=== PATIENT | female | born 1945 | race Caucasian/White ===

== ENCOUNTER 2017-04-11 08:00 | Inpatient (IN) | payer MEDICARE ==
[2017-04-11] MEDS ORDERED: Nitroglycerin 0.4 MG TAB (25 Tab Bottle) ONE (08:04)
[2017-04-11 08:17] LABS: Anion Gap 9 mmol/L (-14-95); Lactate 1.83 mmol/L (0.50-2.20); POC Est. GFR-MDRD-African-Amer 50 (2-60); POC Estimated GFR-MDRD 42 (2-60); T. Carbon Dioxide 24.1 mmol/L (1.0-85.0); pH (Venous) 7.352 (7.35-7.45); vO2 Saturation-calc 97.8 % (0.0-100.0)
[2017-04-11 08:33] LABS: #Basophils 0.1 thou/uL (0.0-0.2); #Eosinphils 0.3 thou/uL (0.0-0.7); #Lymphocytes 2.1 thou/uL (1.20-3.40); #Monocytes 0.6 thou/uL (0.11-0.59); %Basophils 0.8 % (0.0-1.0); %Lymphocytes 34.7 % (21.0-51.0); %Monocytes 9.8 % (0.0-10.0); Hematocrit 40.9 % (36.0-47.0); Mean Platelet Volume 7.1 fL (7.4-10.4); Red Blood Cell (RBC) Count 3.99 mill/uL (4.20-5.40); White Blood Cell (WBC) Count 6.1 thou/uL (4.8-10.8)
[2017-04-11 08:36] LABS: PTT 27.4 SEC (22.9-36.1); Prothrombin Time 12.7 SEC (12.0-14.7)
--- NOTE | 2017-04-11 08:37 | RAD ---
PORTABLE AP CHEST X-RAY: 04/11/2017 HISTORY: Emergency. COMPARISON: 01/08/2017 FINDINGS: The cardiac silhouette is enlarged. There is an increase in interstitial densities bilaterally, whi ch may be related to either pulmonary edema or an infectious process. These interstitial densities were not present on the prior study. No consolidation or pleural fluid is evident. Vascular calcif ications are seen in a mildly ectatic thoracic aorta. No other interval change. IMPRESSION: Interval development of diffuse increased interstitial opacities, which may be related to either an infectious process or pulmonary edema. POS: MED
[2017-04-11 08:45] LABS: Chloride 103 mmol/L (98-107)
[2017-04-11 08:46] LABS: Calcium 9.1 mg/dL (7.8-10.44)
[2017-04-11 08:47] LABS: Globulin 4.7 g/dL (2.4-3.5); Protein, Total 8.3 g/dL (6.0-8.3)
[2017-04-11 08:48] LABS: Carbon Dioxide 18 mmol/L (23-31)
[2017-04-11 08:49] LABS: Bilirubin, Total 0.5 mg/dL (0.2-1.2)
[2017-04-11 08:50] LABS: Alkaline Phosphatase 73 U/L (40-150); Calc. Creatinine Clearance 0 mL/min (70-130); Estimated GFR-MDRD 36
[2017-04-11 08:51] LABS: BUN (Urea Nitrogen) 18 mg/dL (9.8-20.1); Troponin I 1.554 ng/mL (< 0.028)
[2017-04-11 08:52] LABS: AST (SGOT) 28 U/L (5-34)
[2017-04-11 08:53] LABS: ALT (SGPT) 12 U/L (8-55); Lipase 24 U/L (8-78)
[2017-04-11] MEDS ORDERED: Clopidogrel Bisulfate 300 MG TAB ONE (09:09)
[2017-04-11 09:12] LABS: Anion Gap 20 mmol/L (10-20)
[2017-04-11] MEDS ORDERED: Furosemide 20 MG/2 ML VIAL ONE (10:12)
[2017-04-11] MEDS ORDERED: Furosemide 20 MG/2 ML VIAL SLOW IVP SCH (10:15)
[2017-04-11] MEDS ORDERED: Sodium Chloride 0.9% 1,000 ML IV SCH (10:16)
[2017-04-11] MEDS ORDERED: Mag-Al 1200 mg/1200 mg/30 ML UDCUP PO PRN (10:16)
[2017-04-11] MEDS ORDERED: Milk Of Magnesia 30 ML UDCUP PO PRN (10:16)
[2017-04-11] MEDS ORDERED: Lisinopril 2.5 MG TAB PO SCH (11:00)
[2017-04-11 11:28] LABS: Troponin I 3.132 ng/mL (< 0.028)
--- NOTE | 2017-04-11 11:50 | EKG ---
Test Reason : POST STENT Blood Pressure : / mmHG Vent. Rate : 068 BPM Atrial Rate : 068 BPM P-R Int : 174 ms QRS Dur : 106 ms QT Int : 488 ms P-R-T Axes : 056 026 131 degrees QTc Int : 518 ms Normal sinus rhythm Prolonged QT Abnormal ECG When compared with ECG of 08-JAN-2017 07:29, QT has lengthened Confirmed by DR. Sebastian ERAZO ([id number]) on 04/11/2017 11:50:12 AM Referred By: Stanley HERNANDEZ Confirmed By:DR. Sebastian ERAZO
--- NOTE | 2017-04-11 12:05 | RAD ---
PORTABLE CHEST 1 VIEW: Date: 04/11/17 Time: 0928 hours HISTORY: ST elevation myocardial infarction with stent placement. FINDINGS/IMPRESSION: Comparison made with earlier exam at 0812 hours from the same date. No significant interval change is identified. POS: [facility]
--- NOTE | 2017-04-11 12:14 | HP ---
DATE OF SERVICE 04/11/2017 CHIEF COMPLAINT: Chest pain, abnormal EKG. HISTORY OF PRESENT ILLNESS: Ms. Schneider is a 72-year-old female who woke up early this morning with chest pain, diaphoresis, and shortness of breath. She was brought to the emergency dep artment and upon arrival, EKG showed evidence of global ischemia with ST segment elevation in the au gmented lead AVR. The Senior Editor was mobilized for an urgent evaluation invasively. She has been evaluated by a security test engineer in [place] in the past and was told that she had inoperable disease. Due to this report she has relegated herself into medical management and has ignored ches t pain in the past. She continues to smoke and has done so for decades. I do not have records of h er prior evaluation in [place] for review. PAST MEDICAL HISTORY: 1. Previously documented coronary artery disease. 2. Chronic obstructive pulmonary disease. 3. Hypertension. 4. Dyslipidemia. 5. Gastroesophageal reflux disease. PAST SURGICAL HISTORY: 1. Appendectomy. 2. Hysterectomy. 3. Lumbar spine surgery. ALLERGIES: SULFA (anaphylaxis). SOCIAL HISTORY: Long-term tobacco use with continued tobacco use, smoking cigarettes. Reported sig nificant alcohol intake. Negative for illicit drug use. FAMILY HISTORY: Negative with respect to premature atherosclerosis. CURRENT MEDICATIONS: 1. Xanax 0.25 mg b.i.d. as needed for anxiety. 2. Aspirin 81 mg daily. 3. Carvedilol 3.125 mg b.i.d. 4. Plavix 75 mg daily. 5. Lasix 40 mg daily. 6. Imdur 30 mg b.i.d. 7. Lisinopril 10 mg daily. 8. Nitrostat as needed sublingually. 9. Protonix 40 mg daily. 10. Ranolazine 500 mg b.i.d. REVIEW OF SYSTEMS: As per history of present illness. Remainder of 12 system review is negative. PHYSICAL EXAMINATION: VITAL SIGNS: Blood pressure on arrival is 170/78, pulse 80 and regular, respiratory rate 16 and non labored, temperature 98.8. GENERAL: This is a well-developed, thin, elderly appearing 72-year-old female in no acute distress. She is alert and oriented x4. She answers questions appropriately. HEENT: Head was atraumatic, normocephalic. Pupils were equal, round and reactive. Sclerae and con junctivae are clear. There are no oral lesions. NECK: Supple, no JVD, thyromegaly, carotid bruits. CHEST: Symmetrical inspiration and expiration. HEART: Regular in rate and rhythm. No murmur, S3, S4. PMI is nondisplaced, not enlarged. LUNGS: Clear to auscultation in all loyd. No adventitious sounds appreciated. ABDOMEN: Soft, nontender, nondistended without mass or organomegaly. Bowel sounds are present in a ll 4 quadrants. No flank bruits auscultated. EXTREMITIES: 2+ pulses noted bilaterally in the upper and lower extremities. Strength is 5/5 bilat erally. There is no clubbing, cyanosis or edema. NEUROLOGIC: Grossly intact without focal motor deficits appreciated. DATABASE: EKG reveals sinus rhythm with diffuse global ST segment depressions with elevations in AV R. LABORATORY DATA: CBC reveals a white count 6, H\T\H of 13 and 40, platelet count 248,000. Differen tial; white blood cells normal. Red cell indices are macrocytic with an MCV of 103. Coagulation st udies are normal. Chemistries reveal normal electrolytes, BUN and creatinine of 18 and 1.4, GFR is estimated at 42. LFTs are normal. CK and CK-MB measurements are normal. Troponin 1.5. ASSESSMENT: 1. Acute coronary syndrome. 2. Known coronary artery disease with medical management recommended remotely. 3. Hypertension, marginally controlled. 4. Dyslipidemia, reportedly on therapy. 5. Chronic kidney disease stage 3. 6. Chronic tobacco use. 7. Questionable alcohol abuse. RECOMMENDATIONS: 1. From a cardiac standpoint, she is stable currently hemodynamically. We have opted to move forwa rd urgently to the Senior Editor to evaluate her coronary anatomy and intervene if appropriate. We will make further recommendations when her anatomy is further defined. 2. We will resume medications for acute coronary syndrome and known coronary artery disease and up titrate the doses of medications for optimizing control. I will follow along and appreciate the opportunity to participate.
[2017-04-11 14:19] VITALS: BMI 22.2
[2017-04-11] MEDS ORDERED: FLU VACC TS2017-18 (>65YR) 0.5 ML SYRINGE IM ONE (15:30)
[2017-04-11] MEDS ORDERED: Ondansetron HCl/PF 4 MG/2 ML Vial SLOW IVP PRN (16:30)
[2017-04-11] MEDS ORDERED: Ondansetron HCl/PF 4 MG/2 ML Vial SLOW IVP SCH (16:30)
[2017-04-11 17:17] LABS: Troponin I 7.683 ng/mL (< 0.028)
--- NOTE | 2017-04-11 17:44 | CON ---
DATE OF CONSULTATION: 04/11/2017 HISTORY OF PRESENT ILLNESS: Ms. Schneider is a bright, pleasant 72-year-old female. Apparently, alexis berumen was told that she had inoperable coronary disease. According to Dr. Melton's notes, she has been pr esenting with chest discomfort intermittently and had a particularly bad episode today. She has und ergone cardiac catheterization and stenting. I was consulted because of her presence to the ICU. PAST MEDICAL HISTORY: 1. Remarkable for COPD. She said that she was not told she could not have heart surgery because of her COPD, but because of coronary anatomy problems. 2. History of hypertension. 3. Lipid disorder. 4. Reflux disease. 5. Status post hysterectomy. 6. Appendectomy and spine surgery. ALLERGIES: She reports intolerance to SULFA. SOCIAL HISTORY: She is a smoker. She is not a drinker. FAMILY HISTORY: She has a family history negative for lung disease. PHYSICAL EXAMINATION: VITAL SIGNS: Blood pressure 180/85, pulse 80, respiratory rate 18. She is in no distress. She say s her chest pain was gone. HEENT: Pupils are equal. Sclerae is anicteric. NECK: Supple. LUNGS: Clear. HEART: Regular rhythm. S1 and S2 are normal. ABDOMEN: Soft and nontender. EXTREMITIES: Without clubbing, cyanosis or edema. IMPRESSION: 1. Status post coronary intervention through the right radial approach. She is chest pain free now after coronary stenting. 2. ? obstructive lung disease. PLAN: Add Symbicort. She is not bronchospastic at this point.
[2017-04-11] MEDS: Mometasone/Formoterol 120 PUFF INHALER INH SCH (18:07)
[2017-04-11] MEDS: Atorvastatin Calcium 20 MG TAB PO SCH (20:51)
[2017-04-11] MEDS: Carvedilol 3.125 MG TAB PO SCH (20:51)
[2017-04-12] MEDS ORDERED: Sodium Chloride 0.9% (PF) 10 ML VIAL ONE (01:35)
[2017-04-12] MEDS ORDERED: Heparin 10,000 UNITS/ 10 ML VIAL ONE (01:35)
[2017-04-12 04:24] LABS: #Eosinphils 0.1 thou/uL (0.0-0.7); #Lymphocytes 0.8 thou/uL (1.20-3.40); #Monocytes 0.3 thou/uL (0.11-0.59); #Neutrophils 3.6 thou/uL (1.40-6.50); %Basophils 0.4 % (0.0-1.0); %Eosinophils 2.4 % (0.0-10.0); %Lymphocytes 16.4 % (21.0-51.0); %Monocytes 7.1 % (0.0-10.0); Hematocrit 32.9 % (36.0-47.0); Mean Platelet Volume 6.4 fL (7.4-10.4); Red Blood Cell (RBC) Count 3.31 mill/uL (4.20-5.40); White Blood Cell (WBC) Count 4.8 thou/uL (4.8-10.8)
[2017-04-12 04:30] LABS: ALT (SGPT) 11 U/L (8-55); AST (SGOT) 25 U/L (5-34); Alkaline Phosphatase 57 U/L (40-150); Anion Gap 8 mmol/L (10-20); BUN (Urea Nitrogen) 19 mg/dL (9.8-20.1); Bilirubin, Total 0.6 mg/dL (0.2-1.2); Calc. Creatinine Clearance 45 mL/min (70-130); Calcium 8.7 mg/dL (7.8-10.44); Carbon Dioxide 29 mmol/L (23-31); Chloride 102 mmol/L (98-107); Estimated GFR-MDRD 49; Globulin 3.2 g/dL (2.4-3.5); Protein, Total 6.4 g/dL (6.0-8.3)
[2017-04-12] MEDS: Mometasone/Formoterol 120 PUFF INHALER INH SCH ×2 (07:29→18:31)
[2017-04-12] MEDS: Clopidogrel Bisulfate 75 MG TAB PO SCH (08:21)
[2017-04-12] MEDS ORDERED: Morphine 2 MG/ML SYRINGE SLOW IVP PRN (08:31)
[2017-04-12] MEDS ORDERED: Nitroglycerin 2% Ointment 1 INCH/1 GM Packet TOP SCH (08:45)
[2017-04-12] MEDS: Carvedilol 3.125 MG TAB PO SCH ×2 (09:05→20:32)
[2017-04-12] MEDS ORDERED: Heparin 10,000 UNITS/1 ML VIAL ONE (09:26)
[2017-04-12] MEDS ORDERED: Nitroglycerin 100MG/250ML BOT 0 ML ONE (09:26)
[2017-04-12] MEDS: Lisinopril 2.5 MG TAB PO SCH (11:12)
[2017-04-12] MEDS ORDERED: Midazolam HCl 2 mg/2 ml Vial ONE (11:21)
[2017-04-12] MEDS ORDERED: Fentanyl 100 MCG/2 ML VIAL ONE (11:22)
[2017-04-12] MEDS ORDERED: DOPamine 400 MG/D5W 250 ML 250 ML ONE (11:32)
--- NOTE | 2017-04-12 12:06 | EKG ---
Test Reason : STAT Blood Pressure : / mmHG Vent. Rate : 071 BPM Atrial Rate : 071 BPM P-R Int : 166 ms QRS Dur : 094 ms QT Int : 468 ms P-R-T Axes : 060 034 072 degrees QTc Int : 508 ms Normal sinus rhythm Left ventricular hypertrophy with repolarization abnormality Prolonged QT Abnormal ECG When compared with ECG of 11-APR-2017 10:19, Nonspecific T wave abnormality no longer evident in Inferior leads Confirmed by DR. Sebastian ERAZO ([id number]) on 04/12/2017 12:06:09 PM Referred By: Confirmed By:DR. Sebastian ERAZO
--- NOTE | 2017-04-12 12:12 | EKG ---
Test Reason : C/O CHEST PAIN Blood Pressure : / mmHG Vent. Rate : 071 BPM Atrial Rate : 071 BPM P-R Int : 170 ms QRS Dur : 098 ms QT Int : 454 ms P-R-T Axes : 051 018 055 degrees QTc Int : 493 ms Normal sinus rhythm Nonspecific ST and T wave abnormality Prolonged QT Abnormal ECG When compared with ECG of 12-APR-2017 04:14, (Unconfirmed) No significant change was found Confirmed by DR. Sebastian ERAZO ([id number]) on 04/12/2017 12:12:08 PM Referred By: Stanley HERNANDEZ Confirmed By:DR. Sebastian ERAZO
[2017-04-12] MEDS ORDERED: Ondansetron HCl/PF 4 MG/2 ML Vial ONE ×2 (12:19→12:55)
[2017-04-12] MEDS ORDERED: Acetaminophen/Codeine 30-300mg Tablet PO PRN (12:29)
--- NOTE | 2017-04-12 16:50 | PRG ---
DATE OF SERVICE: 04/12/2017 SUBJECTIVE: Valeria Schneider underwent a complicated cardiac catheterization today. She is back i n the ICU and medically stable. OBJECTIVE: VITAL SIGNS: Heart rate 77, respiratory rate is 19, oximetry is 100% and blood pressures at 2:00 wa s 157/58. ASSESSMENT AND PLAN: She will stay in the ICU until tomorrow and then hopefully move her out of the Critical Care Unit.
[2017-04-12] MEDS: Morphine 2 MG/ML SYRINGE SLOW IVP PRN ×2 (18:43→23:17)
[2017-04-12] MEDS: Zolpidem Tartrate 5 MG TAB PO PRN (20:32)
[2017-04-12] MEDS: Atorvastatin Calcium 20 MG TAB PO SCH (20:32)
[2017-04-12] MEDS: ALPRAZolam 0.25 MG TAB PO PRN (21:42)
[2017-04-13] MEDS: ALPRAZolam 0.25 MG TAB PO PRN ×2 (01:11→18:16)
[2017-04-13] MEDS: Zolpidem Tartrate 5 MG TAB PO PRN ×2 (01:11→20:57)
[2017-04-13] MEDS: Morphine 2 MG/ML SYRINGE SLOW IVP PRN ×2 (03:06→18:21)
[2017-04-13 03:55] LABS: #Eosinphils 0.1 thou/uL (0.0-0.7); #Monocytes 0.5 thou/uL (0.11-0.59); #Neutrophils 2.4 thou/uL (1.40-6.50); %Basophils 0.5 % (0.0-1.0); %Eosinophils 3.4 % (0.0-10.0); %Lymphocytes 23.8 % (21.0-51.0); Mean Platelet Volume 6.6 fL (7.4-10.4); Red Blood Cell (RBC) Count 3.22 mill/uL (4.20-5.40)
[2017-04-13 04:14] LABS: ALT (SGPT) 12 U/L (8-55); AST (SGOT) 36 U/L (5-34); Alkaline Phosphatase 52 U/L (40-150); Anion Gap 9 mmol/L (10-20); BUN (Urea Nitrogen) 19 mg/dL (9.8-20.1); Bilirubin, Total 0.6 mg/dL (0.2-1.2); Calc. Creatinine Clearance 56 mL/min (70-130); Calcium 8.8 mg/dL (7.8-10.44); Carbon Dioxide 24 mmol/L (23-31); Chloride 105 mmol/L (98-107); Estimated GFR-MDRD 62; Globulin 3.2 g/dL (2.4-3.5); Protein, Total 6.3 g/dL (6.0-8.3)
[2017-04-13] MEDS ORDERED: Morphine 2 MG/ML SYRINGE SLOW IVP PRN (06:25)
[2017-04-13] MEDS: Mometasone/Formoterol 120 PUFF INHALER INH SCH ×2 (06:59→18:40)
--- NOTE | 2017-04-13 07:27 | EKG ---
Blood Pressure : / mmHG Vent. Rate : 069 BPM Atrial Rate : 069 BPM P-R Int : 174 ms QRS Dur : 108 ms QT Int : 498 ms P-R-T Axes : 059 039 053 degrees QTc Int : 533 ms Normal sinus rhythm Marked ST abnormality, possible inferior subendocardial injury Marked ST abnormality, possible anterior subendocardial injury Prolonged QT Abnormal ECG When compared with ECG of 12-APR-2017 08:28, ST now depressed in Anterior leads Confirmed by DR. Sebastian ERAZO ([id number]) on 04/13/2017 7:27:35 AM Referred By: MARY Confirmed By:DR. Sebastian ERAZO
[2017-04-13] MEDS: Clopidogrel Bisulfate 75 MG TAB PO SCH (10:47)
[2017-04-13] MEDS: Carvedilol 3.125 MG TAB PO SCH (10:47)
[2017-04-13] MEDS: Lisinopril 2.5 MG TAB PO SCH (10:47)
--- NOTE | 2017-04-13 11:14 | PDOC.CTH ---
Cardiology Progress Note - Subjective Doing great. No CP or other CV symptoms. Not needing TPM overnight. Tolerating medical management. ROS otherwise negative. - Objective Vital Signs Temp Pulse Resp Pulse Ox 04/13/17 10:47 79 04/13/17 07:40 98.1 F 79 16 100 04/13/17 07:00 98.1 F 04/13/17 06:59 76 18 100 04/13/17 04:00 98 F 04/13/17 00:00 98.2 F Weight 138 lb 04/12/17 04/13/17 04/14/17 06:59 06:59 06:59 Intake Total 1325 390 Output Total 1200 850 40 Balance 125 -460 -40 - Physical Examination General/Neuro: alert & oriented x3, NAD Neck: carotid US brisk, no JVD present Lungs: CTA, unlabored respirations Heart: PMI normal, RRR Abdomen: no HSM, NT/ND, soft Extremities: other: (2+ pulses, no edema) Other PE findings: Neuro: no focal motor defs - Telemetry Telemetry Rhythm: sinus rhythm - Labs Result Diagrams: 04/13/17 03:43 04/13/17 03:43 Troponin/CKMB CK-MB (CK-2) 48.7 ng/mL (0-6.6) H* 04/11/17 16:14 Troponin I 7.683 ng/mL (< 0.028) H* 04/11/17 16:14 - Assessment/Plan 1. CAD, s/p PCI of LCx and LAD: stable. Continue medical management. 2. TPM during PCI yesterday: removed today. Sheath to remove this morning with transfer to telemetry this afternoon. Home tomorrow on meds with follow up in office in 2 weeks. 3. HTN: controlled. Continue medical management. 4. dyslipidemia: statin for life 5. tobacco use: counseled on need to discontinue given degree of disease and adverse health effects.
--- NOTE | 2017-04-13 13:25 | EKG ---
Test Reason : Blood Pressure : / mmHG Vent. Rate : 080 BPM Atrial Rate : 080 BPM P-R Int : 156 ms QRS Dur : 104 ms QT Int : 450 ms P-R-T Axes : 058 023 080 degrees QTc Int : 519 ms Normal sinus rhythm Prolonged QT Abnormal ECG When compared with ECG of 12-APR-2017 13:37, ST less depressed in Anterior leads Confirmed by DR. Sebastian ERAZO ([id number]) on 04/13/2017 1:24:10 PM Referred By: MARY Confirmed By:DR. Sebastian ERAZO
--- NOTE | 2017-04-13 16:05 | PRG ---
DATE OF SERVICE: 04/13/2017 SUBJECTIVE: Ms. Valeria Schneider said she is feeling great, she states she has down with smoking, she wants to see her grandbaby. OBJECTIVE: VITAL SIGNS: Heart rate 78, respiratory rate 16, oximetry is 100%, and blood pressure 154/49. LUNGS: Free of wheezes. HEART: Regular rhythm. IMPRESSION: 1. Chronic obstructive pulmonary disease, clinically stable. 2. Status post complicated coronary stenting. PLAN: Continue support. She is stable to move out of Critical Care Unit when Cardiology feels she is.
[2017-04-13] MEDS: Atorvastatin Calcium 20 MG TAB PO SCH (20:53)
[2017-04-13] MEDS: Carvedilol 6.25 MG TAB PO SCH (20:54)
[2017-04-14] MEDS: ALPRAZolam 0.25 MG TAB PO PRN (04:45)
[2017-04-14] MEDS: Mometasone/Formoterol 120 PUFF INHALER INH SCH ×2 (09:06→18:35)
[2017-04-14] MEDS: Carvedilol 6.25 MG TAB PO SCH ×2 (10:35→20:26)
[2017-04-14] MEDS: Clopidogrel Bisulfate 75 MG TAB PO SCH (10:35)
[2017-04-14] MEDS: Lisinopril 2.5 MG TAB PO SCH (10:36)
[2017-04-14] MEDS: ALPRAZolam 0.5 MG TAB PO PRN ×2 (11:00→20:26)
--- NOTE | 2017-04-14 11:01 | PRG ---
DATE OF SERVICE: 04/14/2017 Valeria Schneider is complaining of a little chest congestion, and shortness of breath. She is not wheezing. PHYSICAL EXAMINATION: VITAL SIGNS: On exam her heart rate is 83, blood pressure 133/75. She was hypertensive earlier thi s morning at 187/90. LUNGS: Her lungs are completely clear at this time. IMPRESSION: 1. Severe anxiety 2. Coronary disease, status post multiple stents with a coronary dissection. 3. Anemia with an increased mean corpuscular volume. PLAN: Supportive care. I will add nebulizer treatments. I will increase her anxiolytics.
--- NOTE | 2017-04-14 17:57 | PDOC.CTH ---
Cardiology Progress Note - Subjective She is doing well. Her anxiety level has improved significantly with current meds. She denies any chest pain, tightness ,pressure, SOB. Her cath sites look unremarkable, no hematoma or bruit. - Objective Vital Signs Temp Pulse Resp BP BP Pulse Ox 04/14/17 14:41 74 16 04/14/17 12:00 98.2 F 78 18 136/77 96 04/14/17 11:37 79 16 04/14/17 10:36 83 133/75 04/14/17 10:35 133/75 04/14/17 09:07 96 04/14/17 09:06 76 12 L 04/14/17 08:00 98.2 F 78 18 133/75 96 Weight 138 lb 04/13/17 04/14/17 04/15/17 06:59 06:59 06:59 Intake Total 390 844 720 Output Total 850 380 Balance -460 464 720 - Physical Examination General/Neuro: alert & oriented x3, NAD Neck: no JVD present Lungs: unlabored respirations Heart: RRR Abdomen: NT/ND Extremities: other: (no edema) - Telemetry Telemetry Rhythm: NSR - Labs Result Diagrams: 04/13/17 03:43 04/13/17 03:43 Troponin/CKMB CK-MB (CK-2) 48.7 ng/mL (0-6.6) H* 04/11/17 16:14 Troponin I 7.683 ng/mL (< 0.028) H* 04/11/17 16:14 - Assessment/Plan 1. CAD, s/p PCI of LCx and LAD: stable 2. HTN: controlled. 3. Dyslipidemia: statin for life 4. Tobacco use: counseled on cessation 5. Anxiety, better with increased anxiolitic. 6. Full code. 7. EF at 40-45%, ischemic CM. PLAN: - Continue current meds - Home tomorrow if remains stable.
[2017-04-14] MEDS ORDERED: hydrALAZINE 20 MG/ML VIAL SLOW IVP PRN (17:58)
--- NOTE | 2017-04-14 19:43 | ECHO ---
DATE OF SERVICE: 04/11/2017. Left ventricle is normal size. LV wall thickness is normal. Systolic function is reduced with EF es timated at 40-45% with severe hypokinesis of the inferior and inferolateral wall and mild hypokinesi s of the anterolateral wall. Grade I/III diastolic dysfunction. Left atrium is mildly dilated. The right atrium is normal size and right ventricle are normal size and normal systolic function. Aortic root is normal size. The aortic valve is heavily calcified with decreased cusp opening. Hemodynamic measurements suggest moderate aortic stenosis with a valve area estimated at 1.4 cm2 There is moderate aortic insufficie ncy. Mitral valve has mitral annular calcification with mild MR, no stenosis. Tricuspid valve structurally normal. There is mild TR with normal right ventricular systolic pressu re. Pulmonary valve not well seen. No effusions. CONCLUSIONS: 1. Reduced systolic function, EF of 40-45% with regional wall motion abnormalities as above. 2. Grade I/III diastolic dysfunction. 3. MAC with mild MR. 4. Mild TR. 5. Heavily calcified aortic valve with moderate aortic stenosis and moderate aortic insufficiency.
[2017-04-14] MEDS: Atorvastatin Calcium 20 MG TAB PO SCH (20:26)
[2017-04-14] MEDS: Morphine 2 MG/ML SYRINGE SLOW IVP PRN (23:33)
[2017-04-15] MEDS: Mometasone/Formoterol 120 PUFF INHALER INH SCH ×2 (07:09→18:52)
[2017-04-15] MEDS: Lisinopril 2.5 MG TAB PO SCH (09:46)
[2017-04-15] MEDS: Clopidogrel Bisulfate 75 MG TAB PO SCH (09:47)
[2017-04-15] MEDS: Carvedilol 6.25 MG TAB PO SCH (09:47)
[2017-04-15] MEDS: ALPRAZolam 0.5 MG TAB PO PRN (09:50)
[2017-04-15] MEDS ORDERED: methylPREDNISolone Sod Succ/PF 125 MG/2 ML VIAL IVP SCH (12:30)
--- NOTE | 2017-04-15 12:36 | PRG ---
DATE OF SERVICE: 04/15/2017 OBJECTIVE: VITAL SIGNS: Ms. Schneider is afebrile, heart rate in the 70s, blood pressure 161/67. LUNGS: Clear. HEART: Regular rhythm. ABDOMEN: Soft. LABORATORY DATA: There is no new lab. IMPRESSION: 1. Chronic obstructive pulmonary disease. 2. Coronary artery disease. PLAN: Hopefully, wean off O2. Continue with current respiratory care. Continue ambulation and phy sical therapy. I will add a dose of Medrol to see if this improves her gas exchange.
--- NOTE | 2017-04-15 14:40 | DIS ---
DATE OF ADMISSION: 04/11/2017 DATE OF DISCHARGE: 04/15/2017 DISCHARGING PHYSICIAN: Jim Mora MD PRIMARY DIAGNOSES: 1. Non-ST elevation myocardial infarction. 2. Coronary artery disease. 3. Hypertension. 4. Hyperlipidemia. 5. Tobacco use. 6. Anxiety and depression. 7. Ischemic cardiomyopathy. PROCEDURES PERFORMED: 1. Left heart catheterization, status post percutaneous coronary intervention of the left circumfle x and LAD. 2. Echocardiogram. SUMMARY: Ms. Schneider is a pleasant 72-year-old white female who comes to the hospital for chest p ain. She was taken to the catheterization lab and eventually had stents to her LAD and left circumf flo. Her LAD stent was complicated with a little dissection that resolved after stenting. She did well postoperatively. Her echocardiogram revealed an EF of 40-45%. She is on optimal medical thera py. She will be discharged home with follow up in 2-4 weeks. DISCHARGE MEDICATIONS: Unchanged. Continue Plavix and aspirin indefinitely for now. Over 30 minutes were spent at bedside counseling for discharge.
[2017-04-15 16:57] VITALS: BP 143/65; TEMP 98.3
== END 2017-04-15 19:15 | disposition home or self-care (01) | DRG 248 ==
LOC: ERS 08:00 → CCL 08:31 → IMCU/EMU 09:21 → CCU 04-12 14:13 → 2NO 04-13 16:00
PROVIDERS: ADMIT Internal Medicine; ATTEND Internal Medicine
PROC: B2111ZZ Fluoroscopy of Multiple Coronary Arteries using Low Osmolar Contrast (ICD-10-PCS; principal; 2017-04-11)
PROC: 02703FZ Dilation of Coronary Artery, One Artery with Three Intraluminal Devices, Percutaneous Approach (ICD-10-PCS; 2017-04-11)
PROC: 4A023N7 Measurement of Cardiac Sampling and Pressure, Left Heart, Percutaneous Approach (ICD-10-PCS; 2017-04-11)
PROC: B2151ZZ Fluoroscopy of Left Heart using Low Osmolar Contrast (ICD-10-PCS; 2017-04-11)
PROC: 02703FZ Dilation of Coronary Artery, One Artery with Three Intraluminal Devices, Percutaneous Approach (ICD-10-PCS; 2017-04-12)
DX: I21.4 Non-ST elevation (NSTEMI) myocardial infarction (principal); I25.42 Coronary artery dissection; J44.9 Chronic obstructive pulmonary disease, unspecified; I25.10 Atherosclerotic heart disease of native coronary artery without angina pectoris; I10 Essential (primary) hypertension; F17.210 Nicotine dependence, cigarettes, uncomplicated; E78.5 Hyperlipidemia, unspecified; K21.9 Gastro-esophageal reflux disease without esophagitis; F41.9 Anxiety disorder, unspecified; Z79.82 Long term (current) use of aspirin; Z88.2 Allergy status to sulfonamides; D64.9 Anemia, unspecified; Z23 Encounter for immunization
CPT/HCPCS: 36415; 36416; 71010; 80053; 82330; 82553; 82803; 83605; 83690; 84484; 85025; 85347; 85610; 85730; 90471; 90682; 92928; 92929; 92953; 93005; 93010; 93306; 93454; 93458; 93567; 93571; 93798; 94640; 96374; 96375; 99152; 99153; A4216; C1725; C1760; C1769; C1876; C1887; G0008; J0153; J0360; J1265; J1644; J1940; J2250; J2270; J2405; J3010; J7620; Q2036

== ENCOUNTER 2017-06-12 04:08 | Inpatient (IN) | payer MEDICARE ==
[2017-06-12 04:56] LABS: #Eosinphils 0.2 thou/uL (0.0-0.7); #Lymphocytes 1.4 thou/uL (1.20-3.40); #Monocytes 0.4 thou/uL (0.11-0.59); #Neutrophils 1.8 thou/uL (1.40-6.50); %Basophils 0.6 % (0.0-1.0); %Eosinophils 4.2 % (0.0-10.0); %Lymphocytes 37.8 % (21.0-51.0); %Monocytes 10.3 % (0.0-10.0); %Neutrophils 47.1 % (42.0-75.0); Hemoglobin 11.8 g/dL (12.0-16.0); Mean Corpuscular HGB CONC 32.3 g/dL (32.0-36.0); Mean Corpuscular Hemoglobin 32.9 pg (27.0-31.0); Mean Platelet Volume 7.1 fL (7.4-10.4); Platelet Count 173 thou/uL (130-400); RBC Distribution Width 13.3 % (11.5-14.5); Red Blood Cell (RBC) Count 3.57 mill/uL (4.20-5.40); White Blood Cell (WBC) Count 3.7 thou/uL (4.8-10.8)
[2017-06-12] MEDS ORDERED: Nitroglycerin 2% Ointment 1 INCH/1 GM Packet ONE (05:15)
[2017-06-12 05:23] LABS: ALT (SGPT) 11 U/L (8-55); AST (SGOT) 18 U/L (5-34); Albumin 3.5 g/dL (3.4-4.8); Alkaline Phosphatase 57 U/L (40-150); Anion Gap 12 mmol/L (10-20); BUN (Urea Nitrogen) 27 mg/dL (9.8-20.1); Bilirubin, Total 0.5 mg/dL (0.2-1.2); CK (CPK) 54 U/L (29-168); Calc. Creatinine Clearance 0 mL/min (70-130); Calcium 9.5 mg/dL (7.8-10.44); Carbon Dioxide 30 mmol/L (23-31); Chloride 105 mmol/L (98-107); Estimated GFR-MDRD 27; Globulin 3.5 g/dL (2.4-3.5); Glucose 107 mg/dL (83-110); Potassium 3.9 mmol/L (3.5-5.1); Sodium 143 mmol/L (136-145)
[2017-06-12 05:28] LABS: CKMB 4.2 ng/mL (0-6.6)
[2017-06-12] MEDS ORDERED: Enoxaparin Sodium 60 MG/0.6 ML SYRINGE ONE (05:36)
[2017-06-12] MEDS ORDERED: Metoprolol Tartrate 5 MG/5 ML VIAL ONE (06:24)
[2017-06-12] MEDS ORDERED: Loratadine 10 MG TAB PO PRN (08:14)
[2017-06-12] MEDS ORDERED: Benzonatate 100 MG CAP PO PRN (08:14)
[2017-06-12] MEDS ORDERED: Diabetic Tussin 200 MG/10 ML UDCUP PO PRN (08:14)
[2017-06-12] MEDS ORDERED: Acetaminophen 325 MG TAB PO PRN (08:14)
[2017-06-12] MEDS ORDERED: Loperamide HCl 2 MG CAP PO PRN (08:14)
[2017-06-12] MEDS ORDERED: Eucerin (Mineral Oil/Petrolatum,White) 30 gm Jar TOP PRN (08:14)
[2017-06-12] MEDS ORDERED: Senokot 8.6 MG TAB PO PRN (08:14)
[2017-06-12] MEDS ORDERED: Mag-Al 1200 mg/1200 mg/30 ML UDCUP PO PRN (08:14)
[2017-06-12] MEDS ORDERED: Ondansetron ODT 4 MG TAB PO PRN (08:14)
[2017-06-12] MEDS ORDERED: hydrALAZINE 20 MG/ML VIAL SLOW IVP PRN (08:14)
[2017-06-12] MEDS ORDERED: Chloraseptic Spray 180 ml Bottle PO PRN (08:14)
[2017-06-12] MEDS ORDERED: Artificial Tears 18 DROP/0.9 ML EA EYE PRN (08:14)
[2017-06-12] MEDS ORDERED: Sodium Chloride 0.65% Nasal 44 ML BOT EA NARE PRN (08:14)
[2017-06-12] MEDS ORDERED: Milk Of Magnesia 30 ML UDCUP PO PRN (08:14)
[2017-06-12 09:44] LABS: CKMB 5.9 ng/mL (0-6.6); Troponin I 0.245 ng/mL (< 0.028)
--- NOTE | 2017-06-12 09:46 | RAD ---
AP VIEW CHEST: Date: 06/12/17 HISTORY: Chest pain. FINDINGS: Comparison made to previous exam from 04/11/17. AP view of chest demonstrates the lungs to be well aerated. No evidence of active intrathoracic disea se is seen. No evidence of effusions, pneumonia, or pneumothorax seen. IMPRESSION: Unremarkable AP view of chest. POS: [facility]
[2017-06-12] MEDS ORDERED: Clopidogrel Bisulfate 75 MG TAB ONE (10:45)
[2017-06-12] MEDS ORDERED: Famotidine 20 MG TAB ONE (12:03)
--- NOTE | 2017-06-12 12:26 | HP ---
PRIMARY CARE PHYSICIAN: Dr. Modesto Simmons. PRIMARY HISTORIC SITES SUPERVISOR: Dr. Miguel Melton. REASON FOR ADMISSION: Chest pain. HISTORY OF PRESENT ILLNESS: This is a 72-year-old female, who has underlying history of coronary art kranthi disease, who presented to the emergency room last night with complaint of chest pain. The patien t reports that for the last 2-3 days she was not taking any medication and she is not able to give me any explanation, but she reports that she was forgetting taking medication because of that, her bloo d pressure was running high and she was having headache, dizziness, chest pain, and she was taking Ex cedrin that help her headache and subsequently after taking Excedrin, she had upset in stomach and sh e had 1 time vomiting. She was also complaining of chest pain last night, which was left-sided, whic h was radiating to the shoulder joint. She was also complaining of jaw pain, but she was reporting j aw pain as a clicking sensation whenever she was opening her mouth. At that time, she was hearing so me clicks, but this morning she did not have that clicking. There was no relation of jaw pain with c hest pain as well. She denied any associated diaphoresis, but she was feeling dizziness. She was tao ving dyspnea. She was also having nausea sensation. Her disk intensity of pain was about 5/10, her blood pressure was also running high at home. This patient has a history of medication noncompliance. She saw chief compressor station engineer about 2-3 weeks ago per patient. This patient already had echocardiography in 03/2017. At that time EF was 40% to 45% as w ell as diastolic dysfunction and she has a heavy calcified aortic valve with moderate aortic stenosis and moderate aortic regurgitation. This patient also had a cardiac labor operator procedure and she requi red admission under Cardiology in 03/2017. At that time, she had 2 stents placed in LAD as well as c ircumflex. The patient denies any fever or chills. She denies any orthopnea, PND. She denies any leg swelling. She denies any cold or flu-like illness. She denies any UTI symptoms. She denies any melena, sabra tochezia, or abdominal pain. She also denies that she does have all medications with her at home, bu t she was not taking because of forgetting. REVIEW OF SYSTEMS: The following complete review of systems was negative, unless otherwise mentioned in the HPI or below: Constitutional: Weight loss or gain, ability to conduct usual activities. Skin: Rash, itching. Eyes: Double vision, pain. ENT/Mouth: Nose bleeding, neck stiffness, pain, tenderness. Cardiovascular: Palpitations, dyspnea on exertion, orthopnea. Respiratory: Shortness of breath, wheezing, cough, hemoptysis, fever or night sweats. Gastrointestinal: Poor appetite, abdominal pain, heartburn, nausea, vomiting, constipation, or diarrh ea. Genitourinary: Urgency, frequency, dysuria, nocturia. Musculoskeletal: Pain, swelling. Neurologic/Psychiatric: Anxiety, depression. Allergy/Immunologic: Skin rash, bleeding tendency. Please see my HPI for pertinent positives and negatives. All other review of systems reviewed and ne gative except as mentioned in the HPI. ALLERGIES: PENICILLIN and SULFA DRUGS. CURRENT HOME MEDICATIONS: Lasix 40 mg p.o. daily, Imdur 30 mg twice daily, Ranexa 1000 mg twice sylvie y, Coreg 3.125 mg twice daily, Plavix 75 mg p.o. daily, lisinopril 10 mg p.o. daily, Lipitor 20 mg p. o. at bedtime, nitroglycerin 0.4 mg sublingual p.r.n., and aspirin 81 mg p.o. daily. PAST MEDICAL HISTORY: Chronic systolic and diastolic heart failure, coronary artery disease, tobacco abuse disorder, COPD, hypertension, dyslipidemia, and gastroesophageal reflux disease. PAST PSYCHIATRIC HISTORY: Anxiety, depression, and medication noncompliance. PAST SURGICAL HISTORY: Appendicectomy, hysterectomy, cardiac catheterization with stent placement, b ack surgery, and lumbar spine surgery. SOCIAL HISTORY: The patient smokes about half pack per day. She drinks alcohol every week. She use d to drink wine every night, but now she is using occasionally. She denies any other illicit drug ab use. The patient lives by herself at home. FAMILY HISTORY: Positive for hypertension and coronary artery disease among several family members. EMERGENCY ROOM COURSE: The patient is given lisinopril 2.5, Ranexa 1000 mg, Plavix 75 mg, Pepcid 20 mg, aspirin 81 mg, Coreg 3.125 mg, metoprolol 5 mg IV push, Lovenox 1 mg per kg, aspirin 324 mg, and nitropatch 1 inch. PHYSICAL EXAMINATION: VITAL SIGNS: On arrival, blood pressure 183/92, pulse 66, respiratory rate 18, temperature 97.6, sat uration 95% on room air, and weight 73 kilograms. GENERAL: The patient is currently alert, oriented, in no acute distress. HEAD: Normocephalic, atraumatic. EYES: Pupils round, reactive to light. Extraocular muscles intact. ENT: Oropharynx within normal limits. Moist mucous membranes. No oral lesions. No pharyngeal eryt sabra, no exudates. NECK: Supple, no JVD, no thyromegaly, no carotid bruit, no jugular venous distention. LUNGS: Clear to auscultation without any rhonchi or rales. CARDIAC: S1 and S2 regular. Systolic murmur present at aortic area. No gallop, no rub. ABDOMEN: Soft, bowel sounds present, nontender, nondistended. No organomegaly, no mass, no suprapub ic tenderness. BACK: Unremarkable, no CVA tenderness. EXTREMITIES: Upper extremity passive movement of all joints are normal. Lower extremities: No saumya a. Good peripheral pulsation. SKIN: No skin rash. HEMATOLOGICAL: No lymphadenopathy. PSYCHIATRIC: Normal affect. SIGNIFICANT LABORATORY DATA: EKG showing normal sinus rhythm, nonspecific ST-T changes in anterior a nd lateral leads, LVH. Chest x-ray based on review, cardiomegaly, COPD changes, no acute process. CBC: WBC 3.7, hemoglobin 11.8, MCV 102, platelets 173. BMP: Sodium 143, potassium 3.9, chloride 10 5, carbon dioxide 30, anion gap 12, BUN 27, creatinine 1.82, glucose 107, and calcium 9.5. LFT: AST 18, ALT 11, alkaline phosphatase 57, albumin 3.5, CK-MB 4.2, troponin I 0.130, CK-MB 5.9, t roponin 0.245. BNP 628.7. ASSESSMENT AND PLAN: 1. Chest pain, elevated troponin. This patient does have coronary artery disease. This patient was not taking any medication at home, most likely uncontrolled hypertension and her medication noncompl iance contributing to her chest pain. She still has a smoking history. At this point, I will consul t Cardiology for their opinion. Meanwhile, I will continue with aspirin 81 mg p.o. daily, Plavix 75 mg p.o. daily, Coreg 3.125 mg twice daily, lisinopril 2.5 mg p.o. daily, nitropatch q.8 hourly and wi ll adjust blood pressure medication while in hospital. The patient education about medication compli ance is given. This patient already had cardiac catheterization done in 03/2017, doubt this patient needed any further evaluation. She also had echocardiography during that admission. 2. Acute kidney failure. This patient's renal function was normal in 03/2017 and currently creatini ne is 1.82. This patient's renal function is elevated most likely due to diuretic therapy. At this point, I will stop her Lasix therapy because patient is euvolemic. We will continue with lisinopril 2.5 mg p.o. daily. The patient is encouraged oral intake. We will avoid IV fluid because of her jacky vated BNP and history of systolic and diastolic dysfunction to prevent fluid overload status. We arthur l repeat BMP tomorrow. 3. Coronary artery disease with a history of bare metal stent. We will continue the aspirin, Plavix , Coreg, lisinopril, Ranexa 1000 mg p.o. b.i.d., and Lipitor 20 mg p.o. at bedtime. 4. Chronic systolic and diastolic heart failure, though BNP is elevated, but patient is currently eu volemic. We will hold on Lasix therapy. We will continue Coreg, lisinopril therapy. 5. Tobacco abuse disorder. Smoking cessation counseling given. Healthy lifestyle measures discusse d with the patient. 6. Macrocytic anemia, we will start folic acid, vitamin B12, and ferrous sulfate therapy while in [facility]. 7. Moderate aortic stenosis with moderate aortic regurgitation based on prior echocardiography. The patient already had echocardiography in 03/2017 and she will get another echocardiography upon [facility] visit with Cardiology. 8. Dyslipidemia. We will check lipid profile tomorrow and continue Lipitor 20 mg p.o. at bedtime. 9. Deep venous thrombosis prophylaxis. The patient is low risk for any deep venous thrombosis. The patient is already given one dose of Lovenox 1 mg per kg in the emergency room. Further Lovenox arthur l defer to Cardiology if needed. 10. Gastrointestinal prophylaxis, Pepcid 20 mg p.o. daily. 11. CODE STATUS: The patient is FULL CODE. The patient's daughter is surrogate decision maker. 12. Disposition plan based on clinical course and cardiology recommendation. 13. Anxiety disorder. We will continue Xanax 0.25 mg p.o. b.i.d. p.r.n. 14. Medication noncompliance. The patient is given patient education about medical compliance with treatment. 15. Hypertension, uncontrolled, likely due to medication noncompliance. We will adjust blood pressu re medication during this admission.
[2017-06-12 12:45] LABS: CKMB 6.5 ng/mL (0-6.6)
[2017-06-12 13:07] VITALS: BMI 20.6
[2017-06-12] MEDS: Famotidine 20 MG TAB PO SCH (13:17)
[2017-06-12] MEDS: Carvedilol 3.125 MG TAB PO SCH ×2 (13:17→19:53)
[2017-06-12] MEDS: Lisinopril 2.5 MG TAB PO SCH (13:17)
[2017-06-12] MEDS: Clopidogrel Bisulfate 75 MG TAB PO SCH (13:17)
[2017-06-12] MEDS: Nitroglycerin 2% Ointment 1 INCH/1 GM Packet TOP SCH ×2 (14:16→19:54)
[2017-06-12 18:55] LABS: Bilirubin Negative (Negative); Blood, Urine Negative (Negative); Clarity CLEAR (Clear); Glucose, Urine (Dipstick) Negative (Negative); Leukocyte Small (Negative); Nitrite Negative (Negative); Protein, Urine (Dipstick) 30 mg/dL (Neg-Trace); Specific Gravity, Urine 1.015 (1.002-1.036); Urobilinogen 0.2 mg/dL (0.2-1.0)
[2017-06-12 18:57] LABS: Bacteria/HPF None Seen HPF (None Seen); Hyaline Casts/LPF 0-3 HYALINE CAST LPF (0-3 Hyaline); Pathc Cast-AUWi Flag 0.13 (0-2.49); RBC/HPF 0-3 HPF (0-3); Squamous Epithelial 0-3 HPF (0-3); WBC/HPF 0-3 HPF (0-3)
[2017-06-12] MEDS: ALPRAZolam 0.25 MG TAB PO PRN (19:53)
[2017-06-12] MEDS: Atorvastatin Calcium 20 MG TAB PO SCH (19:53)
[2017-06-13] MEDS: Ondansetron HCl/PF 4 MG/2 ML Vial IVP PRN (02:27)
[2017-06-13] MEDS ORDERED: Ondansetron HCl/PF 4 MG/2 ML Vial SLOW IVP SCH (03:30)
[2017-06-13] MEDS ORDERED: Morphine 4 MG/ML VIAL SLOW IVP SCH ×2 (03:30→15:15)
[2017-06-13] MEDS: Nitroglycerin 2% Ointment 1 INCH/1 GM Packet TOP SCH ×3 (03:35→20:16)
[2017-06-13 04:32] LABS: #Eosinphils 0.1 thou/uL (0.0-0.7); #Monocytes 0.3 thou/uL (0.11-0.59); %Basophils 0.7 % (0.0-1.0); %Eosinophils 4.2 % (0.0-10.0); %Lymphocytes 29.7 % (21.0-51.0); %Monocytes 8.1 % (0.0-10.0); %Neutrophils 57.3 % (42.0-75.0); Hemoglobin 12.6 g/dL (12.0-16.0); Mean Corpuscular HGB CONC 33.2 g/dL (32.0-36.0); Mean Corpuscular Hemoglobin 33.7 pg (27.0-31.0); Mean Platelet Volume 7.4 fL (7.4-10.4); Platelet Count 164 thou/uL (130-400); RBC Distribution Width 13.2 % (11.5-14.5); Red Blood Cell (RBC) Count 3.74 mill/uL (4.20-5.40); White Blood Cell (WBC) Count 3.4 thou/uL (4.8-10.8)
[2017-06-13 04:54] LABS: Anion Gap 14 mmol/L (10-20); BUN (Urea Nitrogen) 20 mg/dL (9.8-20.1); Calc. Creatinine Clearance 39 mL/min (70-130); Calcium 9.5 mg/dL (7.8-10.44); Carbon Dioxide 26 mmol/L (23-31); Cardiac Risk 4.4 (Less than 4.5); Chloride 103 mmol/L (98-107); Cholesterol 176 mg/dl (< 200 Desired); Estimated GFR-MDRD 45; Glucose 118 mg/dL (83-110); HDL Cholesterol 40 mg/dL (>60 Neg Risk); LDL Cholesterol, Calculated 100 mg/dL; Potassium 3.5 mmol/L (3.5-5.1); Sodium 139 mmol/L (136-145); Triglycerides 182 mg/dL (Less than 150)
[2017-06-13 04:56] LABS: CKMB 5.1 ng/mL (0-6.6)
[2017-06-13 04:59] LABS: Critical Call Chem Troponin I RESULT DECREASING; Troponin I 0.415 ng/mL (< 0.028)
[2017-06-13] MEDS: Ferrous Sulfate 325 MG TAB PO SCH (09:11)
[2017-06-13] MEDS: Clopidogrel Bisulfate 75 MG TAB PO SCH (09:11)
[2017-06-13] MEDS: Cyanocobalamin (Vitamin B-12) 1,000 MCG TAB PO SCH (09:11)
[2017-06-13] MEDS: Lisinopril 2.5 MG TAB PO SCH (09:11)
[2017-06-13] MEDS: Folic Acid 1 MG TAB PO SCH (09:11)
[2017-06-13] MEDS: Carvedilol 3.125 MG TAB PO SCH ×2 (09:11→20:16)
[2017-06-13] MEDS: Famotidine 20 MG TAB PO SCH (09:11)
--- NOTE | 2017-06-13 12:58 | PDOC.PN ---
- Subjective Encounter Start Date: 06/13/17 Encounter Start Time: 12:56 Patient seen at bedside. No overnight events, anxious about her cardiac situation. - Objective Resuscitation Status: Resuscitation Status FULL:Full Resuscitation MAR Reviewed: Yes Vital Signs & Weight: Vital Signs (12 hours) Temp Pulse Resp BP BP Pulse Ox 06/13/17 11:05 66 18 139/65 98 06/13/17 09:11 70 159/70 H 06/13/17 07:30 97.9 F 70 18 159/70 H 98 06/13/17 05:05 71 16 143/66 H 06/13/17 03:12 98.0 F 77 20 177/75 H 94 L 06/13/17 02:46 76 18 189/81 H 97 06/13/17 02:27 77 22 H 195/83 H 95 06/13/17 01:49 83 06/13/17 01:45 70 18 197/81 H 95 Weight Weight 130 lb I&O: 06/12/17 06/13/17 06/14/17 06:59 06:59 06:59 Intake Total 664 Output Total 300 Balance 364 Result Diagrams: 06/13/17 03:38 06/13/17 03:38 Phys Exam - Physical Examination Constitutional: NAD HEENT: moist MMs Neck: no JVD Respiratory: no rales Cardiovascular: RRR Gastrointestinal: soft Musculoskeletal: pulses present Neurological: moves all 4 limbs Psychiatric: A&O x 3 Dx/Plan (1) Chest pain Code(s): R07.9 - CHEST PAIN, UNSPECIFIED Status: Acute (2) NSTEMI (non-ST elevated myocardial infarction) Code(s): I21.4 - NON-ST ELEVATION (NSTEMI) MYOCARDIAL INFARCTION Status: Acute (3) Anxiety and depression Code(s): F41.9 - ANXIETY DISORDER, UNSPECIFIED; F32.9 - MAJOR DEPRESSIVE DISORDER, SINGLE EPISODE, UNSPECIFIED Status: Chronic (4) HLD (hyperlipidemia) Code(s): E78.5 - HYPERLIPIDEMIA, UNSPECIFIED Status: Chronic (5) HTN (hypertension) Code(s): I10 - ESSENTIAL (PRIMARY) HYPERTENSION Status: Chronic - Plan cont current plan of care, out of bed/ambulate * Continue with ASA/Plavix. * Ranexa/BB/Statin * Lovenox given hx of CAD and rising TNI * Await cardiology input (further intervention vs medical management)
[2017-06-13] MEDS ORDERED: Enoxaparin Sodium 60 MG/0.6 ML SYRINGE SC SCH (13:00)
[2017-06-13] MEDS ORDERED: cloNIDine 0.1 MG TAB PO PRN (15:02)
[2017-06-13] MEDS: ALPRAZolam 0.25 MG TAB PO PRN ×2 (15:07→20:16)
[2017-06-13 15:45] LABS: Troponin I 0.273 ng/mL (< 0.028)
[2017-06-13] MEDS: Atorvastatin Calcium 40 MG TAB PO SCH (20:16)
[2017-06-13] MEDS: HYDROcodone/Acetaminophen 5/325 mg Tablet PO PRN (20:16)
[2017-06-13] MEDS: Atorvastatin Calcium 20 MG TAB PO SCH (20:17)
--- NOTE | 2017-06-13 21:01 | CON ---
DATE OF CONSULTATION: 06/13/2017 HISTORY OF PRESENT ILLNESS: Valeria Schneider is a 72-year-old white female. She was initially evaluated by Dr. Maurice in 05/2016. She had unstable angina and overall it was recommended that she undergo cardiac catheterization; however, she declined. She did undergo Cardiolite testing, which revealed an infarction of the posterolateral wall with some eric-infarct ischemia. Ejection fraction was 34%. She then presented again on 04/11/2017 with chest pain, diaphoresis, and shortness of breath. There was diffuse global ST segment depression with elevation in AVR. She underwent emergent catheterization by Dr. Melton. There was an 80% stenosis in the proximal LAD and a 99% stenosis in the proximal circumflex. A 2.75 x 15 mm Multi-Link Vision was placed in the circumflex due to history of noncompliance. This was performed through the right radial artery. She was taken back the next today for evaluation of the LAD. FFR was measured and it was 0.04. There was dissection at the LAD - circumflex bifurcations limiting flow in the LAD. The intimal dissection was fixed with a 2.5 x 28 and a 2.5 x 24 Rebel stent. Also, a Rebel 2.5 x 12 mm stent was placed in the circumflex. Echocardiogram revealed that she had an ejection fraction of 40-45%. She apparently did well until last night when she presented to the emergency room with chest discomfort. For 2-3 days she had not been taking her medication and just been forgetting to take it. She had chest pain in the left side radiating to her left shoulder as well as jaw pain. She has been found to have positive cardiac enzymes. PAST MEDICAL HISTORY: Remarkable for hypertension, systolic and diastolic heart failure, coronary artery disease, COPD, hypercholesterolemia, GERD, anxiety, depression, and medication noncompliance. MEDICATIONS: At home include alprazolam 0.25 b.i.d. p.r.n., aspirin 81 daily, atorvastatin 20 mg at bedtime, carvedilol 3.125 b.i.d., Plavix 75 daily, furosemide 40 daily, isosorbide mononitrate 30 mg b.i.d., lisinopril 10 mg daily , nitroglycerin p.r.n., Ranexa 500 mg b.i.d. ALLERGIES: SULFA, PENICILLINS and HYDRALAZINE. OPERATIONS: Appendectomy, hysterectomy, back surgery, lumbar spine surgery. SOCIAL HISTORY: She continues to smoke one half pack per day. She continues to intermittently drink. FAMILY HISTORY: Positive for coronary artery disease. REVIEW OF SYSTEMS: Twelve-point review of systems is otherwise unremarkable. PHYSICAL EXAMINATION: VITAL SIGNS: 140/63, pulse 60. HEENT: PERRL. NECK: Supple. LUNGS: Chest is clear. CARDIAC: S1 and S2 are normal without any S3, S4 or murmurs. ABDOMEN: Normal bowel sounds without tenderness or organomegaly. EXTREMITIES: Revealed no clubbing, cyanosis or edema. NEUROLOGIC: Grossly intact. SKIN: Warm and dry. LABORATORY DATA: EKG revealed normal sinus rhythm with left ventricular hypertrophy with repolarization abnormalities. Hemoglobin 12.6, hematocrit 38.0 , white count 3400, platelets 164,000. Sodium 139, potassium 3.5, chloride 103 , carbon dioxide 26, BUN 20, creatinine 1.17. BNP 628.7. Cholesterol 176, triglycerides 182, HDL 40, LDL 100. CK-MB is normal x3. Troponin I is 0.470. IMPRESSION: 1. [id number] elevation myocardial infarction. 2. Medical noncompliance. 3. The patient continues to smoke. 4. Acute kidney injury. 5. Hypertension. 6. Hyperlipidemia, under poor control. 7. Moderate aortic stenosis and moderate aortic insufficiency on prior echo. 8. Anxiety. PLAN: With LDL 100, her atorvastatin will be increased from 20 to 40 mg. Her medicines have been restarted and she will ambulate tomorrow to see if she is having any further problems. Statistically at this point in time, it is too early for in-stent restenosis only being 2 months after stent implantation. Also on evaluation on her EKG, this does not represent acute stent thrombosis. Therefore at this juncture, I would continue to treat her medically. Again emphasized how important is for her to take her medicines on a daily basis. We also discussed that if she forgets her medications, she should take it as soon as she remembers. ROE
[2017-06-14] MEDS: Nitroglycerin 2% Ointment 1 INCH/1 GM Packet TOP SCH ×3 (05:52→22:19)
[2017-06-14] MEDS: ALPRAZolam 0.25 MG TAB PO PRN ×2 (07:08→20:42)
[2017-06-14] MEDS: Nitroglycerin 0.4 MG TAB (25 Tab Bottle) SL PRN ×5 (07:08→15:01)
[2017-06-14] MEDS: Ferrous Sulfate 325 MG TAB PO SCH (09:02)
[2017-06-14] MEDS: Folic Acid 1 MG TAB PO SCH (09:02)
[2017-06-14] MEDS: Lisinopril 2.5 MG TAB PO SCH (09:03)
[2017-06-14] MEDS: Clopidogrel Bisulfate 75 MG TAB PO SCH (09:03)
[2017-06-14] MEDS: Cyanocobalamin (Vitamin B-12) 1,000 MCG TAB PO SCH (09:03)
[2017-06-14] MEDS: Carvedilol 3.125 MG TAB PO SCH ×2 (09:03→20:41)
[2017-06-14] MEDS: Famotidine 20 MG TAB PO SCH (09:03)
[2017-06-14] MEDS: HYDROcodone/Acetaminophen 5/325 mg Tablet PO PRN ×3 (09:04→17:45)
--- NOTE | 2017-06-14 10:21 | EKG ---
Test Reason : Blood Pressure : / mmHG Vent. Rate : 074 BPM Atrial Rate : 074 BPM P-R Int : 158 ms QRS Dur : 102 ms QT Int : 470 ms P-R-T Axes : 070 047 116 degrees QTc Int : 521 ms Normal sinus rhythm Right atrial enlargement Left ventricular hypertrophy with repolarization abnormality Prolonged QT Abnormal ECG When compared with ECG of 12-JUN-2017 06:20, (Unconfirmed) ST less depressed in Inferior leads ST less depressed in Anterior leads T wave inversion less evident in Anterior leads Confirmed by DR. Sebastian ERAZO ([id number]) on 06/14/2017 10:21:23 AM Referred By: Confirmed By:DR. Sebastian ERAZO
--- NOTE | 2017-06-14 10:26 | EKG ---
Test Reason : C/O CHEST PAIN Blood Pressure : / mmHG Vent. Rate : 075 BPM Atrial Rate : 075 BPM P-R Int : 160 ms QRS Dur : 102 ms QT Int : 420 ms P-R-T Axes : 055 004 128 degrees QTc Int : 469 ms Normal sinus rhythm Left ventricular hypertrophy with repolarization abnormality Marked ST abnormality, possible anterior subendocardial injury Abnormal ECG When compared with ECG of 13-JUN-2017 01:59, (Unconfirmed) ST more depressed in Anterior leads T wave inversion more evident in Anterior leads Confirmed by DR. Sebastian ERAZO ([id number]) on 06/14/2017 10:26:03 AM Referred By: ALTAGRACIA Confirmed By:DR. Sebastian ERAZO
--- NOTE | 2017-06-14 10:33 | EKG ---
Test Reason : C/O CHEST PAIN Blood Pressure : / mmHG Vent. Rate : 065 BPM Atrial Rate : 065 BPM P-R Int : 162 ms QRS Dur : 100 ms QT Int : 508 ms P-R-T Axes : 054 022 088 degrees QTc Int : 528 ms Normal sinus rhythm Right atrial enlargement Left ventricular hypertrophy with repolarization abnormality , cannot R/O acute ischemia Prolonged QT Abnormal ECG When compared with ECG of 13-JUN-2017 15:05, (Unconfirmed) T wave inversion less evident in Lateral leads Confirmed by DR. Sebastian ERAZO ([id number]) on 06/14/2017 10:33:01 AM Referred By: NAKUL Confirmed By:DR. Sebastian ERAZO
--- NOTE | 2017-06-14 12:45 | PDOC.PN ---
- Subjective Encounter Start Date: 06/14/17 Encounter Start Time: 07:15 -: old records requested/rev Patient seen and examined. No new complaints. No overnight events pt had chest pain so EKG done and it was unchanged - Objective MAR Reviewed: Yes Vital Signs & Weight: Vital Signs (12 hours) Temp Pulse Resp BP BP Pulse Ox 06/14/17 11:04 98 F 61 16 111/53 L 92 L 06/14/17 09:03 69 169/75 H 06/14/17 04:16 94 L 06/14/17 04:00 97.7 F 60 20 128/62 94 L Weight Weight 130 lb 11.2 oz I&O: 06/13/17 06/14/17 06/15/17 06:59 06:59 06:59 Intake Total 540 Balance 540 Result Diagrams: 06/13/17 03:38 06/13/17 03:38 Radiology Reviewed by me: Yes EKG Reviewed by me: Yes (NSR, ST-T changes, LVH) Phys Exam - Physical Examination Constitutional: NAD HEENT: PERRLA, moist MMs, sclera anicteric Neck: no JVD, supple Respiratory: no wheezing, no rales, no rhonchi Cardiovascular: RRR, no significant murmur, no rub Gastrointestinal: soft, non-tender, no distention, positive bowel sounds Musculoskeletal: no edema, pulses present Neurological: non-focal, normal sensation, moves all 4 limbs Lymphatic: no nodes Psychiatric: normal affect, A&O x 3 Skin: no rash, normal turgor Dx/Plan (1) Acute kidney failure Status: Resolved (2) Chest pain Code(s): R07.9 - CHEST PAIN, UNSPECIFIED Status: Acute (3) NSTEMI (non-ST elevated myocardial infarction) Code(s): I21.4 - NON-ST ELEVATION (NSTEMI) MYOCARDIAL INFARCTION Status: Acute (4) Anxiety and depression Code(s): F41.9 - ANXIETY DISORDER, UNSPECIFIED; F32.9 - MAJOR DEPRESSIVE DISORDER, SINGLE EPISODE, UNSPECIFIED Status: Chronic (5) CAD (coronary artery disease) Code(s): I25.10 - ATHSCL HEART DISEASE OF [place] CORONARY ARTERY W/O ANG PCTRS Status: Chronic (6) HLD (hyperlipidemia) Code(s): E78.5 - HYPERLIPIDEMIA, UNSPECIFIED Status: Chronic (7) HTN (hypertension) Code(s): I10 - ESSENTIAL (PRIMARY) HYPERTENSION Status: Chronic (8) Macrocytic anemia Code(s): D53.9 - NUTRITIONAL ANEMIA, UNSPECIFIED Status: Chronic (9) Moderate aortic regurgitation Code(s): I35.1 - NONRHEUMATIC AORTIC (VALVE) INSUFFICIENCY Status: Chronic (10) Moderate aortic stenosis by prior echocardiogram Code(s): I35.0 - NONRHEUMATIC AORTIC (VALVE) STENOSIS Status: Chronic (11) Tobacco dependence Code(s): F17.200 - NICOTINE DEPENDENCE, UNSPECIFIED, UNCOMPLICATED Status: Chronic - Plan cont current plan of care * continue current optimum medical therapy * cardiology following * will adjust medication today * monitor today * nothing to add at this point. Review of Systems - Review of Systems Constitutional: negative: fever, chills, sweats, weakness, malaise, other Eyes: negative: Pain, Vision Change, Conjunctivae Inflammation, Eyelid Inflammation, Redness, Other ENT: negative: Ear Pain, Ear Discharge, Nose Pain, Nose Discharge, Nose Congestion, Mouth Pain, Mouth Swelling, Throat Pain, Throat Swelling, Other Respiratory: negative: Cough, Dry, Shortness of Breath, Hemoptysis, SOB with Excertion, Pleuritic Pain, Sputum, Wheezing Cardiovascular: chest pain. negative: palpitations, orthopnea, paroxysmal nocturnal dyspnea, edema, light headedness, other Gastrointestinal: negative: Nausea, Vomiting, Abdominal Pain, Diarrhea, Constipation, Melena, Hematochezia, Other Genitourinary: negative: Dysuria, Frequency, Incontinence, Hematuria, Retention , Other Musculoskeletal: negative: Neck Pain, Shoulder Pain, Arm Pain, Back Pain, Hand Pain, Leg Pain, Foot Pain, Other Skin: negative: Rash, Lesions, Saúl, Bruising, Other - Medications/Allergies Allergies/Adverse Reactions: Allergies Allergy/AdvReac Type Severity Reaction Status Date / Time Sulfa (Sulfonamide Allergy Severe Short of Verified 06/16/16 22:48 Antibiotics) Breath Penicillins Allergy Verified 04/11/17 16:43 hydralazine AdvReac Severe Verified 06/13/17 03:28 Medications: Current Medications Acetaminophen (Tylenol) 650 mg PO Q4H PRN PRN Reason: Headache/Fever or Pain Hydrocodone Bitart/Acetaminophen (Clio 5/325) 1 tab PO Q4H PRN PRN Reason: Moderate Pain (4-6) Last Admin: 06/14/17 12:22 Dose: 1 tab Al Hydroxide/Mg Hydroxide (Maalox) 30 ml PO Q6H PRN PRN Reason: Heartburn or Indigestion Alprazolam (Xanax) 0.25 mg PO BID PRN PRN Reason: Anxiety Last Admin: 06/14/17 07:08 Dose: 0.25 mg Artificial Tears (Tears Naturale) 0 drop EA EYE PRN PRN PRN Reason: Dry Eyes Aspirin (Aspirin Chewable) 81 mg PO DAILY [facility] Last Admin: 06/14/17 09:03 Dose: 81 mg Atorvastatin Calcium (Lipitor) 20 mg PO HS [facility] Last Admin: 06/13/17 20:17 Dose: Not Given Atorvastatin Calcium (Lipitor) 40 mg PO HS [facility] Last Admin: 06/13/17 20:16 Dose: 40 mg Benzonatate (Tessalon) 100 mg PO Q4H PRN PRN Reason: Cough Carvedilol (Coreg) 3.125 mg PO BID [facility] Last Admin: 06/14/17 09:03 Dose: 3.125 mg Clonidine (Catapres) 0.1 mg PO Q4H PRN PRN Reason: SBP Greater Than 170 Last Admin: 06/13/17 15:17 Dose: 0.1 mg Clopidogrel Bisulfate (Plavix) 75 mg PO DAILY [facility] Last Admin: 06/14/17 09:03 Dose: 75 mg Cyanocobalamin (Vitamin B-12) 1,000 mcg PO DAILY [facility] Last Admin: 06/14/17 09:03 Dose: 1,000 mcg Famotidine (Pepcid) 20 mg PO DAILY [facility] Last Admin: 06/14/17 09:03 Dose: 20 mg Ferrous Sulfate (Feosol) 325 mg PO [facility] Last Admin: 06/14/17 09:02 Dose: 325 mg Folic Acid (Folvite) 1 mg PO DAILY [facility] Last Admin: 06/14/17 09:02 Dose: 1 mg Guaifenesin (Robitussin Sf) 200 mg PO Q4H PRN PRN Reason: Cough Hydralazine HCl (Apresoline) 10 mg SLOW IVP Q4H PRN PRN Reason: Systolic BP > 180 Last Admin: 06/13/17 01:49 Dose: 10 mg Lisinopril (Zestril) 2.5 mg PO DAILY [facility] Last Admin: 06/14/17 09:03 Dose: 2.5 mg Loperamide HCl (Imodium) 2 mg PO PRN PRN PRN Reason: Diarrhea/Loose Stools Loratadine (Claritin) 10 mg PO DAILYPRN PRN PRN Reason: Sinus Symptoms Magnesium Hydroxide (Milk Of Magnesium) 30 ml PO DAILYPRN PRN PRN Reason: Constipation Mineral Oil/White Petrolatum (Eucerin Cream) 0 gm TOP BIDPRN PRN PRN Reason: Dry Skin Nitroglycerin (Nitrostat) 0.4 mg SL Q5MIN PRN PRN Reason: Chest Pain Last Admin: 06/14/17 09:51 Dose: 0.4 mg Nitroglycerin (Nitro-Bid 2% Ointment) 0.5 inch TOP Q8HR [facility] Last Admin: 06/14/17 12:23 Dose: 0.5 inch Ondansetron HCl (Zofran Odt) 4 mg PO Q6H PRN PRN Reason: Nausea/Vomiting Ondansetron HCl (Zofran) 4 mg IVP Q6H PRN PRN Reason: Nausea/Vomiting Last Admin: 06/13/17 02:27 Dose: 4 mg Phenol (Chloraseptic [place] 180 Ml Bot) 0 ml PO PRN PRN PRN Reason: Sore Throat Ranolazine (Ranexa) 1,000 mg PO BID [facility] Last Admin: 06/14/17 09:03 Dose: 1,000 mg Senna (Senokot) 2 tab PO HSPRN PRN PRN Reason: Constipation Sodium Chloride ([address] Nasal [place] 0.65%) 0 ml EA NARE QIDPRN PRN PRN Reason: Nasal Congestion Zolpidem Tartrate (Ambien) 5 mg PO HSPRN PRN PRN Reason: Insomnia
[2017-06-14] MEDS ORDERED: Communication Order-Pharmacy FS SCH (15:30)
[2017-06-14] MEDS: Atorvastatin Calcium 40 MG TAB PO SCH (20:41)
[2017-06-14] MEDS: Zolpidem Tartrate 5 MG TAB PO PRN (20:43)
[2017-06-15] MEDS: HYDROcodone/Acetaminophen 5/325 mg Tablet PO PRN ×2 (00:57→04:27)
[2017-06-15 04:26] VITALS: BP 123/57
[2017-06-15] MEDS: Ferrous Sulfate 325 MG TAB PO SCH (05:59)
[2017-06-15] MEDS: Nitroglycerin 2% Ointment 1 INCH/1 GM Packet TOP SCH ×3 (05:59→21:50)
[2017-06-15] MEDS: Carvedilol 3.125 MG TAB PO SCH ×2 (06:00→20:28)
[2017-06-15] MEDS ORDERED: Sodium Chloride 0.9% 1,000 ML IV SCH ×2 (06:00→08:03)
[2017-06-15] MEDS: Clopidogrel Bisulfate 75 MG TAB PO SCH (06:00)
[2017-06-15] MEDS: Famotidine 20 MG TAB PO SCH (06:01)
[2017-06-15] MEDS: Lisinopril 2.5 MG TAB PO SCH (06:01)
[2017-06-15] MEDS ORDERED: Heparin 10,000 UNITS/1 ML VIAL ONE (06:33)
[2017-06-15] MEDS ORDERED: Midazolam HCl 2 mg/2 ml Vial ONE (07:22)
[2017-06-15] MEDS ORDERED: Nitroglycerin 4.9 GM Bottle ONE (07:43)
[2017-06-15] MEDS ORDERED: Heparin 25,000 units/D5W 500 ML ONE (07:43)
[2017-06-15] MEDS ORDERED: Heparin 10,000 UNITS/ 10 ML VIAL SLOW IVP SCH (08:00)
[2017-06-15] MEDS ORDERED: Heparin 25,000 units/D5W 500 ML IVPB SCH (08:00)
[2017-06-15] MEDS ORDERED: Nitroglycerin 0.4 MG TAB (25 Tab Bottle) SL PRN (08:01)
[2017-06-15] MEDS ORDERED: Acetaminophen/Codeine 30-300mg Tablet PO PRN (08:01)
[2017-06-15] MEDS ORDERED: traMADol HCl 50 MG TAB PO PRN (08:01)
[2017-06-15] MEDS ORDERED: Sodium Chloride 0.9% 200 ML IV PRN (08:15)
[2017-06-15 09:02] LABS: Platelet Count 145 thou/uL (130-400)
[2017-06-15] MEDS ORDERED: Naloxone HCl 0.4 mg/ml Vial ONE (09:06)
[2017-06-15 09:24] LABS: PTT 135.3 SEC (22.9-36.1)
--- NOTE | 2017-06-15 10:40 | CT ---
CT OF THE CHEST: Date: 06-15-17 Provided Clinical History: Atherosclerosis. FINDINGS: The heart, pericardium, and great vessels are suboptimally evaluated without IV contrast. There is at herosclerotic vascular calcification involving the thoracic aorta and its branches including coronary calcium. There is possible right hilar lymph node enlargement versus vascular calcification. This is incomplet maranda characterized without IV contrast. There is prominence of the pulmonary interstitium, particularl y in the region of the lung apices, which may reflect changes of congestive failure. Chronic lung agustín nges such as fibrosis could also be considered but is felt less likely. Airway appears patent and of normal caliber. No pleural fluid or pneumothorax apparent. The visualized portions of the upper abdomen demonstrate an unremarkable unenhanced CT appearance. The osseous structures demonstrate no concerning osteoblastic or osteolytic lesions. IMPRESSION: 1. Findings suggesting congestive failure. 2. Atherosclerosis. POS: DAIANA
--- NOTE | 2017-06-15 12:11 | PDOC.PN ---
- Subjective Encounter Start Date: 06/15/17 Encounter Start Time: 10:15 Patient seen and examined. gets chest pain and dyspnea. No overnight events - Objective MAR Reviewed: Yes Vital Signs & Weight: Vital Signs (12 hours) Temp Pulse Resp BP BP Pulse Ox 06/15/17 06:01 76 123/57 L 06/15/17 04:00 98.0 F 73 13 123/57 L 91 L Weight Weight 130 lb 11.2 oz I&O: 06/14/17 06/15/17 06/16/17 06:59 06:59 06:59 Intake Total 540 Balance 540 Result Diagrams: 06/15/17 08:36 06/13/17 03:38 Radiology Reviewed by me: Yes (CT chest) EKG Reviewed by me: Yes Phys Exam - Physical Examination Constitutional: NAD HEENT: PERRLA, moist MMs, sclera anicteric Neck: no JVD, supple Respiratory: no wheezing, no rales, no rhonchi Cardiovascular: RRR, no significant murmur, no rub Gastrointestinal: soft, non-tender, no distention, positive bowel sounds Musculoskeletal: no edema, pulses present Neurological: non-focal Lymphatic: no nodes Psychiatric: normal affect Skin: no rash, normal turgor Dx/Plan (1) Acute kidney failure Status: Resolved (2) Chest pain Code(s): R07.9 - CHEST PAIN, UNSPECIFIED Status: Acute (3) NSTEMI (non-ST elevated myocardial infarction) Code(s): I21.4 - NON-ST ELEVATION (NSTEMI) MYOCARDIAL INFARCTION Status: Acute (4) Anxiety and depression Code(s): F41.9 - ANXIETY DISORDER, UNSPECIFIED; F32.9 - MAJOR DEPRESSIVE DISORDER, SINGLE EPISODE, UNSPECIFIED Status: Chronic (5) CAD (coronary artery disease) Code(s): I25.10 - ATHSCL HEART DISEASE OF [place] CORONARY ARTERY W/O ANG PCTRS Status: Chronic (6) HLD (hyperlipidemia) Code(s): E78.5 - HYPERLIPIDEMIA, UNSPECIFIED Status: Chronic (7) HTN (hypertension) Code(s): I10 - ESSENTIAL (PRIMARY) HYPERTENSION Status: Chronic (8) Macrocytic anemia Code(s): D53.9 - NUTRITIONAL ANEMIA, UNSPECIFIED Status: Chronic (9) Moderate aortic regurgitation Code(s): I35.1 - NONRHEUMATIC AORTIC (VALVE) INSUFFICIENCY Status: Chronic (10) Moderate aortic stenosis by prior echocardiogram Code(s): I35.0 - NONRHEUMATIC AORTIC (VALVE) STENOSIS Status: Chronic (11) Tobacco dependence Code(s): F17.200 - NICOTINE DEPENDENCE, UNSPECIFIED, UNCOMPLICATED Status: Chronic - Plan cont current plan of care * s/p cardiac cath showed left main and 3 vessel CAD * will monitor in CCU * CT surgeon consulted for evaluation for CABG * medication reviewed as below * symptomatic treatment. * continue current medical therapy for NSTEMI as per cardiology Review of Systems - Review of Systems Constitutional: negative: fever, chills, sweats, weakness, malaise, other Eyes: negative: Pain, Vision Change, Conjunctivae Inflammation, Eyelid Inflammation, Redness, Other ENT: negative: Ear Pain, Ear Discharge, Nose Pain, Nose Discharge, Nose Congestion, Mouth Pain, Mouth Swelling, Throat Pain, Throat Swelling, Other Respiratory: SOB with Excertion. negative: Cough, Dry, Shortness of Breath, Hemoptysis, Pleuritic Pain, Sputum, Wheezing Cardiovascular: chest pain. negative: palpitations, orthopnea, paroxysmal nocturnal dyspnea, edema, light headedness, other Gastrointestinal: negative: Nausea, Vomiting, Abdominal Pain, Diarrhea, Constipation, Melena, Hematochezia, Other Genitourinary: negative: Dysuria, Frequency, Incontinence, Hematuria, Retention , Other Musculoskeletal: negative: Neck Pain, Shoulder Pain, Arm Pain, Back Pain, Hand Pain, Leg Pain, Foot Pain, Other Skin: negative: Rash, Lesions, Saúl, Bruising, Other - Medications/Allergies Allergies/Adverse Reactions: Allergies Allergy/AdvReac Type Severity Reaction Status Date / Time Sulfa (Sulfonamide Allergy Severe Short of Verified 06/16/16 22:48 Antibiotics) Breath Penicillins Allergy Verified 04/11/17 16:43 hydralazine AdvReac Severe Verified 06/13/17 03:28 Medications: Current Medications Acetaminophen (Tylenol) 650 mg PO Q4H PRN PRN Reason: Headache/Fever or Pain Acetaminophen/Codeine Phosphate (Tylenol #3) 1 tab PO Q4H PRN PRN Reason: Mild Pain (1-3) Acetaminophen/Codeine Phosphate (Tylenol #3) 2 tab PO Q4H PRN PRN Reason: Moderate Pain (4-6) Al Hydroxide/Mg Hydroxide (Maalox) 30 ml PO Q6H PRN PRN Reason: Heartburn or Indigestion Alprazolam (Xanax) 0.25 mg PO BID PRN PRN Reason: Anxiety Last Admin: 06/14/17 20:42 Dose: 0.25 mg Artificial Tears (Tears Naturale) 0 drop EA EYE PRN PRN PRN Reason: Dry Eyes Aspirin (Aspirin Chewable) 81 mg PO DAILY [facility] Last Admin: 06/15/17 06:00 Dose: 81 mg Atorvastatin Calcium (Lipitor) 40 mg PO HS [facility] Last Admin: 06/14/17 20:41 Dose: 40 mg Benzonatate (Tessalon) 100 mg PO Q4H PRN PRN Reason: Cough Carvedilol (Coreg) 3.125 mg PO BID [facility] Last Admin: 06/15/17 06:00 Dose: 3.125 mg Clonidine (Catapres) 0.1 mg PO Q4H PRN PRN Reason: SBP Greater Than 170 Last Admin: 06/13/17 15:17 Dose: 0.1 mg Clopidogrel Bisulfate (Plavix) 75 mg PO DAILY [facility] Last Admin: 06/15/17 06:00 Dose: 75 mg Cyanocobalamin (Vitamin B-12) 1,000 mcg PO DAILY [facility] Last Admin: 06/14/17 09:03 Dose: 1,000 mcg Famotidine (Pepcid) 20 mg PO DAILY [facility] Last Admin: 06/15/17 06:01 Dose: 20 mg Ferrous Sulfate (Feosol) 325 mg PO QA-[facility] Last Admin: 06/15/17 05:59 Dose: 325 mg Folic Acid (Folvite) 1 mg PO DAILY [facility] Last Admin: 06/14/17 09:02 Dose: 1 mg Guaifenesin (Robitussin Sf) 200 mg PO Q4H PRN PRN Reason: Cough Heparin Sodium (Porcine) (Heparin 1,000 Units/Ml (10 Ml)) 0 units SLOW IVP ASDIR [facility] PRN Reason: Protocol Hydralazine HCl (Apresoline) 10 mg SLOW IVP Q4H PRN PRN Reason: Systolic BP > 180 Last Admin: 06/13/17 01:49 Dose: 10 mg Heparin Sodium/Dextrose (Heparin 25,000 Units/D5w 500 Ml) 500 mls @ 0 mls/hr IVPB INF [facility]; Per Protocol PRN Reason: Protocol Sodium Chloride (Normal Saline 0.9%) 200 mls @ 0 mls/hr IV ONE PRN; As Directed PRN Reason: SBP < 90 Stop: 06/17/17 08:16 Sodium Chloride (Normal Saline 0.9%) 1,000 mls @ 125 mls/hr IV .Q8H [facility] Stop: 06/15/17 14:00 Lisinopril (Zestril) 2.5 mg PO DAILY [facility] Last Admin: 06/15/17 06:01 Dose: 2.5 mg Loperamide HCl (Imodium) 2 mg PO PRN PRN PRN Reason: Diarrhea/Loose Stools Loratadine (Claritin) 10 mg PO DAILYPRN PRN PRN Reason: Sinus Symptoms Magnesium Hydroxide (Milk Of Magnesium) 30 ml PO DAILYPRN PRN PRN Reason: Constipation Mineral Oil/White Petrolatum (Eucerin Cream) 0 gm TOP BIDPRN PRN PRN Reason: Dry Skin Miscellaneous Information (Communication Order-Pharmacy) 0 each FS ONE [facility] Stop: 06/15/17 15:31 Nitroglycerin (Nitrostat) 0.4 mg SL Q5MIN PRN PRN Reason: Chest Pain Last Admin: 06/14/17 15:01 Dose: 0.4 mg Nitroglycerin (Nitro-Bid 2% Ointment) 0.5 inch TOP Q8HR [facility] Last Admin: 06/15/17 05:59 Dose: 0.5 inch Nitroglycerin (Nitrostat) 0.4 mg SL Q5MIN PRN PRN Reason: Chest Pain Ondansetron HCl (Zofran Odt) 4 mg PO Q6H PRN PRN Reason: Nausea/Vomiting Ondansetron HCl (Zofran) 4 mg IVP Q6H PRN PRN Reason: Nausea/Vomiting Last Admin: 06/13/17 02:27 Dose: 4 mg Phenol (Chloraseptic [place] 180 Ml Bot) 0 ml PO PRN PRN PRN Reason: Sore Throat Ranolazine (Ranexa) 1,000 mg PO BID [facility] Last Admin: 06/15/17 06:03 Dose: 1,000 mg Senna (Senokot) 2 tab PO HSPRN PRN PRN Reason: Constipation Sodium Chloride ([place] Nasal [place] 0.65%) 0 ml EA NARE QIDPRN PRN PRN Reason: Nasal Congestion Tramadol HCl (Ultram) 50 mg PO Q6H PRN PRN Reason: Moderate Pain (4-6) Zolpidem Tartrate (Ambien) 5 mg PO HSPRN PRN PRN Reason: Insomnia Last Admin: 06/14/17 20:43 Dose: 5 mg
[2017-06-15] MEDS: Ondansetron HCl/PF 4 MG/2 ML Vial IVP PRN (13:27)
[2017-06-15] MEDS: ALPRAZolam 0.25 MG TAB PO PRN (13:30)
[2017-06-15] MEDS ORDERED: Iopamidol 370 76% 100 ML VIAL ONE (15:30)
[2017-06-15] MEDS ORDERED: Iopamidol 370 76% 50 ML VIAL FS ONE (15:30)
[2017-06-15 18:39] LABS: PTT 129.2 SEC (22.9-36.1)
[2017-06-15] MEDS: Acetaminophen/Codeine 30-300mg Tablet PO PRN (18:46)
[2017-06-15] MEDS: Cyanocobalamin (Vitamin B-12) 1,000 MCG TAB PO SCH (19:41)
[2017-06-15] MEDS: Folic Acid 1 MG TAB PO SCH (19:41)
[2017-06-15] MEDS: Atorvastatin Calcium 40 MG TAB PO SCH (20:28)
--- NOTE | 2017-06-15 21:43 | CON ---
HISTORY OF PRESENT ILLNESS: This is a lady who underwent stenting of her circumflex coronary artery several months ago with a non-drug eluting stent. She was [facility] days later for elective LAD stenting and suffered a dissection of the LAD and underwent [facility]ing at [facility]. She was discharged home and by her account stopped smoking at that time. She has some difficul t home situation and is tearful when discussing her return to the hospital. She evidently had some c hest discomfort for several days, admits to missing her medications only the night before surgery bec ause it was in her son's car and he was out of town. She was found to have elevated troponin, but st ill less than 1. Her BNP was noted to be elevated at 630. She was seen by Dr. Jones who recommen ded cardiac catheterization, which was performed today. EKG consistent with left ventricular hypertr ophy. Cardiac catheterization with severe in-stent stenosis in the circumflex and LAD stents. The r ight coronary artery with mild diffuse disease. Left ventricular systolic function depressed at abou t 30% on LV gram and the patient appeared to have severe mitral regurgitation during LV gram. Cardia c echocardiogram confirms poor LV function with akinetic to hypokinetic lateral wall and inferior wal l. She did have at least moderate to severe mitral regurgitation. She appeared to have calcificatio n of her ascending aorta and a noncontrast CT scan done today confirmed rather diffuse plaquing in th e ascending aorta, although not porcelain aorta. PHYSICAL EXAMINATION: GENERAL: Alert, cooperative lady, although she is confused at times about where she lives. VITAL SIGNS: Blood pressure of 160 and a resting heart rate of 75. NECK: I did not appreciate any carotid bruits. CARDIAC: Her heart sounds are so distant that they are almost inaudible upon my exam as such, I keila ot assess any murmur. ABDOMEN: Soft and nontender. EXTREMITIES: She has palpable femoral and popliteal pulses, although I am unable to palpate any peda l pulses. She has no peripheral edema. At this time, the patient presents rather complex situation with in-stent stenosis of non-drug elutin g stents in her LAD and circumflex and Cardiology does not feel these are amenable to repeat stenting . She has 2 good target vessels; however, complicating this is rather heavily diseased ascending aor ta that may not be able to be cannulated or clamped without replacement. She also has significant mi tral regurgitation and it is not clear from the echo that she has any obvious flail leaflets or torn chordae. The jet appears predominantly central and may be related partially to her failure and poorl y functioning left ventricle. In any event, if she does need her ascending aorta repair, this would have to be done at another facility as we are not routinely doing ascending aortic replacements. If she just needs a mitral valve annuloplasty that could be done here, but if she requires a significant leaflet intervention, she would be better served at a different facility.
[2017-06-15] MEDS: Zolpidem Tartrate 5 MG TAB PO PRN (23:49)
[2017-06-16] MEDS: Acetaminophen/Codeine 30-300mg Tablet PO PRN (02:09)
[2017-06-16] MEDS: ALPRAZolam 0.25 MG TAB PO PRN (02:09)
[2017-06-16] MEDS: Ondansetron HCl/PF 4 MG/2 ML Vial IVP PRN ×2 (04:05→07:42)
[2017-06-16] MEDS: Nitroglycerin 0.4 MG TAB (25 Tab Bottle) SL PRN ×2 (04:31→07:41)
[2017-06-16] MEDS: Nitroglycerin 2% Ointment 1 INCH/1 GM Packet TOP SCH (05:11)
[2017-06-16] MEDS ORDERED: Morphine 4 MG/ML VIAL ONE (07:46)
[2017-06-16] MEDS ORDERED: Nitroglycerin 50 MG/250 ML BOT 250 ML ONE (07:47)
[2017-06-16] MEDS: Ferrous Sulfate 325 MG TAB PO SCH (08:00)
[2017-06-16] MEDS ORDERED: Nitroglycerin 50 MG/250 ML BOT 250 ML IVPB SCH (08:00)
[2017-06-16] MEDS ORDERED: Morphine 4 MG/ML VIAL SLOW IVP PRN ×2 (08:15)
[2017-06-16] MEDS: Famotidine 20 MG TAB PO SCH (09:00)
[2017-06-16] MEDS: Folic Acid 1 MG TAB PO SCH (09:00)
[2017-06-16] MEDS: Carvedilol 3.125 MG TAB PO SCH (09:00)
[2017-06-16] MEDS: Cyanocobalamin (Vitamin B-12) 1,000 MCG TAB PO SCH (09:00)
--- NOTE | 2017-06-16 10:48 | PDOC.PN ---
- Subjective Encounter Start Date: 06/16/17 Encounter Start Time: 10:25 -: old records requested/rev Patient seen and examined. No new complaints. No overnight events - Objective MAR Reviewed: Yes Vital Signs & Weight: Vital Signs (12 hours) Temp 06/16/17 03:00 97.9 F 06/15/17 23:00 98.1 F Weight Weight 130 lb 11.2 oz Most Recent Monitor Data Heart Rate from ECG 76 Respiration from ECG 21 SpO2 98 I&O: 06/15/17 06/16/17 06/17/17 06:59 06:59 06:59 Intake Total 987 Output Total 640 Balance 347 Result Diagrams: 06/15/17 08:36 06/13/17 03:38 Radiology Reviewed by me: Yes (echo-) EKG Reviewed by me: Yes (nsr) Phys Exam - Physical Examination Constitutional: NAD HEENT: PERRLA, moist MMs, sclera anicteric Neck: no JVD, supple Respiratory: no wheezing, no rales, no rhonchi Cardiovascular: RRR, no rub SM+ at apex, aortic area Gastrointestinal: soft, non-tender, no distention, positive bowel sounds Musculoskeletal: no edema, pulses present Neurological: non-focal, normal sensation, moves all 4 limbs Psychiatric: normal affect, A&O x 3 Skin: no rash, normal turgor Dx/Plan (1) Acute kidney failure Status: Resolved (2) Chest pain Code(s): R07.9 - CHEST PAIN, UNSPECIFIED Status: Acute (3) NSTEMI (non-ST elevated myocardial infarction) Code(s): I21.4 - NON-ST ELEVATION (NSTEMI) MYOCARDIAL INFARCTION Status: Acute (4) Anxiety and depression Code(s): F41.9 - ANXIETY DISORDER, UNSPECIFIED; F32.9 - MAJOR DEPRESSIVE DISORDER, SINGLE EPISODE, UNSPECIFIED Status: Chronic (5) CAD (coronary artery disease) Code(s): I25.10 - ATHSCL HEART DISEASE OF [place] CORONARY ARTERY W/O ANG PCTRS Status: Chronic (6) HLD (hyperlipidemia) Code(s): E78.5 - HYPERLIPIDEMIA, UNSPECIFIED Status: Chronic (7) HTN (hypertension) Code(s): I10 - ESSENTIAL (PRIMARY) HYPERTENSION Status: Chronic (8) Macrocytic anemia Code(s): D53.9 - NUTRITIONAL ANEMIA, UNSPECIFIED Status: Chronic (9) Moderate aortic regurgitation Code(s): I35.1 - NONRHEUMATIC AORTIC (VALVE) INSUFFICIENCY Status: Chronic (10) Moderate aortic stenosis by prior echocardiogram Code(s): I35.0 - NONRHEUMATIC AORTIC (VALVE) STENOSIS Status: Chronic (11) Tobacco dependence Code(s): F17.200 - NICOTINE DEPENDENCE, UNSPECIFIED, UNCOMPLICATED Status: Chronic (12) Ischemic cardiomyopathy Code(s): I25.5 - ISCHEMIC CARDIOMYOPATHY Status: Acute (13) Severe mitral regurgitation Code(s): I34.0 - NONRHEUMATIC MITRAL (VALVE) INSUFFICIENCY Status: Acute - Plan cont current plan of care * spoke with CT surgeon at [facility] and accepted transfer for higher level of care * medication reviewed as below * symptomatic treatment * discharge when bed available at [facility]. Review of Systems - Review of Systems ENT: negative: Ear Pain, Ear Discharge, Nose Pain, Nose Discharge, Nose Congestion, Mouth Pain, Mouth Swelling, Throat Pain, Throat Swelling, Other Respiratory: negative: Cough, Dry, Shortness of Breath, Hemoptysis, SOB with Excertion, Pleuritic Pain, Sputum, Wheezing Cardiovascular: negative: chest pain, palpitations, orthopnea, paroxysmal nocturnal dyspnea, edema, light headedness, other Gastrointestinal: negative: Nausea, Vomiting, Abdominal Pain, Diarrhea, Constipation, Melena, Hematochezia, Other Genitourinary: negative: Dysuria, Frequency, Incontinence, Hematuria, Retention , Other Musculoskeletal: negative: Neck Pain, Shoulder Pain, Arm Pain, Back Pain, Hand Pain, Leg Pain, Foot Pain, Other Skin: negative: Rash, Lesions, Saúl, Bruising, Other - Medications/Allergies Allergies/Adverse Reactions: Allergies Allergy/AdvReac Type Severity Reaction Status Date / Time Sulfa (Sulfonamide Allergy Severe Short of Verified 06/16/16 22:48 Antibiotics) Breath Penicillins Allergy Verified 04/11/17 16:43 hydralazine AdvReac Severe Verified 06/13/17 03:28 Medications: Current Medications Acetaminophen (Tylenol) 650 mg PO Q4H PRN PRN Reason: Headache/Fever or Pain Acetaminophen/Codeine Phosphate (Tylenol #3) 1 tab PO Q4H PRN PRN Reason: Mild Pain (1-3) Last Admin: 06/16/17 02:09 Dose: 1 tab Acetaminophen/Codeine Phosphate (Tylenol #3) 2 tab PO Q4H PRN PRN Reason: Moderate Pain (4-6) Al Hydroxide/Mg Hydroxide (Maalox) 30 ml PO Q6H PRN PRN Reason: Heartburn or Indigestion Alprazolam (Xanax) 0.25 mg PO BID PRN PRN Reason: Anxiety Last Admin: 06/16/17 02:09 Dose: 0.25 mg Artificial Tears (Tears Naturale) 0 drop EA EYE PRN PRN PRN Reason: Dry Eyes Aspirin (Aspirin Chewable) 81 mg PO DAILY [facility] Last Admin: 06/15/17 06:00 Dose: 81 mg Atorvastatin Calcium (Lipitor) 40 mg PO HS [facility] Last Admin: 06/15/17 20:28 Dose: 40 mg Benzonatate (Tessalon) 100 mg PO Q4H PRN PRN Reason: Cough Carvedilol (Coreg) 3.125 mg PO BID [facility] Last Admin: 06/15/17 20:28 Dose: 3.125 mg Clonidine (Catapres) 0.1 mg PO Q4H PRN PRN Reason: SBP Greater Than 170 Last Admin: 06/13/17 15:17 Dose: 0.1 mg Cyanocobalamin (Vitamin B-12) 1,000 mcg PO DAILY [facility] Last Admin: 06/15/17 19:41 Dose: Not Given Famotidine (Pepcid) 20 mg PO DAILY [facility] Last Admin: 06/15/17 06:01 Dose: 20 mg Ferrous Sulfate (Feosol) 325 mg PO QA-[facility] Last Admin: 06/15/17 05:59 Dose: 325 mg Folic Acid (Folvite) 1 mg PO DAILY [facility] Last Admin: 06/15/17 19:41 Dose: Not Given Guaifenesin (Robitussin Sf) 200 mg PO Q4H PRN PRN Reason: Cough Heparin Sodium (Porcine) (Heparin 1,000 Units/Ml (10 Ml)) 0 units SLOW IVP ASDIR [facility] PRN Reason: Protocol Last Admin: 06/16/17 00:43 Dose: 1.833 unit Heparin Sodium/Dextrose (Heparin 25,000 Units/D5w 500 Ml) 500 mls @ 0 mls/hr IVPB INF [facility]; Per Protocol PRN Reason: Protocol Sodium Chloride (Normal Saline 0.9%) 200 mls @ 0 mls/hr IV ONE PRN; As Directed PRN Reason: SBP < 90 Stop: 06/17/17 08:16 Nitroglycerin/Dextrose (Nitroglycerin 50 Mg/250 Ml Bot) 250 mls @ 0 mls/hr IVPB INF [facility]; Titrate PRN Reason: Protocol Lisinopril (Zestril) 2.5 mg PO DAILY [facility] Last Admin: 06/15/17 06:01 Dose: 2.5 mg Loperamide HCl (Imodium) 2 mg PO PRN PRN PRN Reason: Diarrhea/Loose Stools Loratadine (Claritin) 10 mg PO DAILYPRN PRN PRN Reason: Sinus Symptoms Magnesium Hydroxide (Milk Of Magnesium) 30 ml PO DAILYPRN PRN PRN Reason: Constipation Mineral Oil/White Petrolatum (Eucerin Cream) 0 gm TOP BIDPRN PRN PRN Reason: Dry Skin Morphine Sulfate (Morphine) 4 mg SLOW IVP Q4H PRN PRN Reason: Chest pain Nitroglycerin (Nitrostat) 0.4 mg SL Q5MIN PRN PRN Reason: Chest Pain Last Admin: 06/16/17 07:41 Dose: 0.4 mg Nitroglycerin (Nitro-Bid 2% Ointment) 0.5 inch TOP Q8HR [facility] Last Admin: 06/16/17 05:11 Dose: 0.5 inch Nitroglycerin (Nitrostat) 0.4 mg SL Q5MIN PRN PRN Reason: Chest Pain Ondansetron HCl (Zofran Odt) 4 mg PO Q6H PRN PRN Reason: Nausea/Vomiting Ondansetron HCl (Zofran) 4 mg IVP Q6H PRN PRN Reason: Nausea/Vomiting Last Admin: 06/16/17 07:42 Dose: 4 mg Phenol (Chloraseptic [place] 180 Ml Bot) 0 ml PO PRN PRN PRN Reason: Sore Throat Ranolazine (Ranexa) 1,000 mg PO BID [facility] Last Admin: 06/15/17 20:28 Dose: 1,000 mg Senna (Senokot) 2 tab PO HSPRN PRN PRN Reason: Constipation Sodium Chloride ([place] Nasal [place] 0.65%) 0 ml EA NARE QIDPRN PRN PRN Reason: Nasal Congestion Tramadol HCl (Ultram) 50 mg PO Q6H PRN PRN Reason: Moderate Pain (4-6) Zolpidem Tartrate (Ambien) 5 mg PO HSPRN PRN PRN Reason: Insomnia Last Admin: 06/15/17 23:49 Dose: 5 mg
--- NOTE | 2017-06-16 11:45 | DIS ---
DATE OF ADMISSION: 06/12/2017 DATE OF DISCHARGE: 06/16/2017 PRIMARY CARE PHYSICIAN: Iris Salvador M.D. DISCHARGE DISPOSITION: [facility] for higher level of care. PRIMARY DISCHARGE DIAGNOSES: 1. Non-ST elevation myocardial infarction. 2. Severe mitral regurgitation. 3. Ischemic cardiomyopathy with ejection fraction 20%. 4. Acute kidney failure, resolved. SECONDARY DISCHARGE DIAGNOSES: Hypertension, anxiety and depression, dyslipidemia, moderate aortic stenosis and moderate aortic regurgitation, macrocytic anemia, tobacco abuse disorder, chronic systolic and diastolic heart failure, history of coronary artery disease with bare metal stent. PRIMARY PROCEDURE/OPERATION: Cardiac catheterization was performed by Dr. Jones and patient was found with in-stent stenosis as well as left main and three-vessel coronary artery disease, severe mitral regurgitation, severe ventricular dysfunction with EF 20%. Echocardiography showed severe mitral regurgitation and AR. CT chest findings suggestive of congestive heart failure. SIGNIFICANT LABORATORY DATA: WBC 3.4, hemoglobin 11.0, platelets 145. PTT 19.5. Sodium 139, potassium 3.5, BUN 20, creatinine 1.17, calcium 9.5, troponin 0.415, LDL 100, cholesterol 176, triglyceride 182, HDL 40. Urinalysis unremarkable. DISCHARGE MEDICATIONS: The patient will be discharged to [facility] for higher level of care. At this point, patient will be on following medical therapy with Xanax 0.25 mg p.o. b.i.d. p.r.n., aspirin 81 mg p.o. daily, Lipitor 40 mg p.o. at bedtime, Coreg 3.125 mg p.o. b.i.d., Plavix 75 mg p.o. daily, vitamin B12 1000 mcg p.o. daily, Pepcid 20 mg p.o. daily, ferrous sulfate 325 mg p.o. daily, folic acid 1 mg p.o. daily, Lasix 40 mg p.o. daily, Imdur 30 mg p.o. b.i.d., lisinopril 10 mg p.o. daily, nitroglycerin 0.4 mg sublingual p.r.n., Ranexa 500 mg p.o. b.i.d. CONTRAINDICATIONS: None. CODE STATUS: FULL CODE. INPATIENT CONSULTANTS: Dr. Jones was following while in hospital. Dr. Matthews was consulted while in hospital. TEST RESULTS PENDING ON DISCHARGE: None. ALLERGIES: PENICILLIN, SULFA, HYDRALAZINE. DISCHARGE PLAN: Post hospital, patient is discharged to [facility] for higher level of care. HOSPITAL COURSE: A 72-year-old female with above-mentioned medical problem who was admitted by me. Please see my HPI for further details. The patient presented to the emergency room with chest pain. Her chest pain description was very atypical anginal. This patient stopped taking medication for couple of days. She has a previous history of moderate aortic stenosis and aortic regurgitation with heavily calcified aortic valve and systolic and diastolic dysfunction. She had cardiac catheterization in March. At that time, two bare metal stent was placed in LCx as well as LAD. This patient presented with atypical angina. She had elevated troponin and subsequently troponin increased to non-STEMI range. During this admission, we did echocardiography, which showed moderate to severe mitral regurgitation which was not there before and we suspected from papillary muscle dysfunction. She was admitted to telemetry floor. She was treated optimally with medical therapy for NSTEMI. As patient was having recurrent angina and that is why the patient had a cardiac catheterization. Cardiac catheterization showed left main and 3-vessel CAD as well as for in-stent restenosis of previously placed bare metal stent. At this time new finding was mitral regurgitation. The patient was admitted in CCU and she was treated with heparin drip. Cardiovascular surgeon was consulted and our cardiovascular surgeon recommended that patient is very complicated to do CABG here in our hospital. She needs mitral valve repair versus replacement as well as aortic valve replacement. She also has worsened ejection fraction. That is why Cardiology and cardiovascular surgeon recommended to transfer to higher level of care. I spoke with her cardiovascular surgeon at [facility] and hospital course was discussed with him in detail and he accepted this patient for taking care of her at [facility]. At this point, over there, Cardiology and cardiovascular surgeon will decide whether she needs any stent in her LAD LCx again or CABG along with valve repair. The patient is seen and examined at bedside today. Please see my progress note for further details. Paperwork for discharge done. Discharge medication reconciliation done. Total time spent on discharge day more than 30 minutes MTDD
--- NOTE | 2017-06-16 14:16 | EKG ---
Test Reason : STAT Blood Pressure : / mmHG Vent. Rate : 084 BPM Atrial Rate : 084 BPM P-R Int : 168 ms QRS Dur : 134 ms QT Int : 458 ms P-R-T Axes : 058 -53 110 degrees QTc Int : 541 ms Normal sinus rhythm Left atrial enlargement Left axis deviation Non-specific intra-ventricular conduction block Marked ST abnormality, possible anterior subendocardial injury Abnormal ECG When compared with ECG of 14-JUN-2017 09:09, Questionable change in QRS duration Confirmed by DR. Sebastian ERAZO ([id number]) on 06/16/2017 2:15:54 PM Referred By: DESIREE Confirmed By:DR. Sebastian ERAZO
--- NOTE | 2017-06-16 14:20 | EKG ---
Test Reason : C/O CHEST PAIN Blood Pressure : / mmHG Vent. Rate : 077 BPM Atrial Rate : 077 BPM P-R Int : 168 ms QRS Dur : 112 ms QT Int : 482 ms P-R-T Axes : 056 007 099 degrees QTc Int : 545 ms Normal sinus rhythm global ischemic changes likely acute Prolonged QT Left atrial enlargement Abnormal ECG When compared with ECG of 16-JUN-2017 04:13, (Unconfirmed) Questionable change in QRS duration Confirmed by DR. Sebastian ERAZO ([id number]) on 06/16/2017 2:19:29 PM Referred By: DESIREE Confirmed By:DR. Sebastian ERAZO
--- NOTE | 2017-06-16 18:23 | CON ---
DATE OF CONSULTATION: 06/16/2017 Valeria Schneider is a 72-year-old female who was just recently discharged from the hospital. She wa s readmitted to the hospital with increasing shortness of breath. She is having some chest pain. This morning, she was in the ICU, she had a CAT scan done, which show s basically evidence of congestive heart failure. She is apparently a smoker, who has quit smoking 20 days ago. She had a cardiac cath, which shows systolic function of 30%. As per cardiology's note, she had sten osis of stent in circumflex and LAD. She also had severe mitral regurgitation. I understand there is some concern about some surgical intervention. She denies any coughing or wheezing. EXTENSIVE PAST MEDICAL HISTORY: As outlined, pertinent for COPD, coronary artery disease, high amarilis sterol, reflux, anxiety, depression, noncompliance. PREVIOUS SURGERIES: Multiple, hysterectomy, back, lumbar, appendix. SOCIAL HISTORY: She states she quit smoking 20 days ago. LIST OF MEDICINES: Ranexa 500, nitroglycerin, lisinopril 10, Ismo 30, Lasix 40, Plavix 75, Coreg 3.1 25, aspirin, Xanax. She is now on a heparin drip. REVIEW OF SYSTEMS: Otherwise 10-point negative. PHYSICAL EXAMINATION: VITAL SIGNS: Blood pressure 126/49, pulse 76, O2 SAT 98%, respiratory rate 21. RESPIRATORY: She denies any difficulty breathing. She has no crackles, rubs, or wheezing. CARDIAC: Normal S1 and S2. No gallops. LABORATORY DATA: PTT is 90. Her labs show white count is 3000, hemoglobin and hematocrit 11 and 30, platelet count is normal. Chemistry shows normal electrolytes and normal creatinine, troponin 0.2. IMPRESSION: Coronary artery disease with mitral regurgitation, tobacco abuse, chronic obstructive pu lmonary disease, congestive heart failure with poor compliance, anxiety, depression. PLAN: Pulmonary was re-consulted again. If surgery is contemplated, we will follow postoperative. Otherwise, neb treatments as needed. Supportive care. We will follow. Please note this is 50 minutes of my time that was spent at the bedside in direct pa tient care.
[2017-06-16 20:35] VITALS: TEMP 98.1
== END 2017-06-16 11:46 | disposition short-term general hospital (02) | DRG 281 ==
LOC: ERS 04:08 → ERHOLD 06:06 → 2SW 12:42 → OBSVTOIN 06-13 15:59 → 2NO 06-13 21:21 → CCU 06-15 08:52
PROVIDERS: ADMIT Internal Medicine Infectious Disease; ATTEND Internal Medicine Infectious Disease
PROC: 4A023N7 Measurement of Cardiac Sampling and Pressure, Left Heart, Percutaneous Approach (ICD-10-PCS; principal; 2017-06-15)
PROC: B2111ZZ Fluoroscopy of Multiple Coronary Arteries using Low Osmolar Contrast (ICD-10-PCS; 2017-06-15)
PROC: B2151ZZ Fluoroscopy of Left Heart using Low Osmolar Contrast (ICD-10-PCS; 2017-06-15)
DX: I21.4 Non-ST elevation (NSTEMI) myocardial infarction (principal); N17.9 Acute kidney failure, unspecified; T82.855A Stenosis of coronary artery stent, initial encounter; I11.0 Hypertensive heart disease with heart failure; I50.42 Chronic combined systolic (congestive) and diastolic (congestive) heart failure; D53.9 Nutritional anemia, unspecified; J44.9 Chronic obstructive pulmonary disease, unspecified; I25.5 Ischemic cardiomyopathy; Z51.5 Encounter for palliative care; F41.9 Anxiety disorder, unspecified; F32.9 Major depressive disorder, single episode, unspecified; E78.5 Hyperlipidemia, unspecified; I08.0 Rheumatic disorders of both mitral and aortic valves; I25.118 Atherosclerotic heart disease of native coronary artery with other forms of angina pectoris; Z91.14 Patient's other noncompliance with medication regimen; Z90.710 Acquired absence of both cervix and uterus; Z88.0 Allergy status to penicillin; Z88.2 Allergy status to sulfonamides; F17.210 Nicotine dependence, cigarettes, uncomplicated; Z95.5 Presence of coronary angioplasty implant and graft; I16.0 Hypertensive urgency
CPT/HCPCS: 36415; 71010; 71250; 80048; 80053; 80061; 81001; 82553; 83880; 84484; 85014; 85018; 85025; 85049; 85347; 85730; 93005; 93010; 93306; 93458; 96372; 96374; 99152; 99406; C1769; J0360; J1644; J1650; J2250; J2270; J2310; J2405